=== PATIENT | female | born 1985 | race Caucasian/White ===

== ENCOUNTER 2020-10-02 09:39 | Outpatient (RCR) | payer OTHER, SELFPAY ==
[2020-09-25 10:14] LABS: Beta HCG Quantitative 63.72 mIU/ML
[2020-09-27 10:37] LABS: Beta HCG Quantitative 73.69 mIU/ML
[2020-09-30 12:25] LABS: Beta HCG Quantitative 74.68 mIU/ML
[2020-10-02 10:26] LABS: Beta HCG Quantitative 26.97 mIU/ML
== END 2020-12-24 23:59 | disposition home or self-care (01) ==
LOC: ANHLAB 09:39
PROVIDERS: Referring Provider Obstetrics & Gynecology; Visit Provider Obstetrics & Gynecology
DX: O20.0 Threatened abortion (principal); O36.0130 Maternal care for anti-D [Rh] antibodies, third trimester, not applicable or unspecified; Z3A.00 Weeks of gestation of pregnancy not specified
CPT/HCPCS: 36415; 84702; 85461

== ENCOUNTER 2021-08-10 05:51 | Inpatient (IN) | payer OTHER, SELFPAY ==
[2021-08-10] VITALS (108 sets, daily range): BP systolic 84–188; BP diastolic 53–166; PULSE 65–264; RESP 16; TEMP 36.6–38.6; O2SAT 97–100; BMI 29.0
--- NOTE | 2021-08-10 07:27 | LDADM ---
This patient, Catherine Trujillo, was admitted to Labor/Delivery/Recovery 105 on 08/10/21 at 05:51. Plans for labor, pain management and were discussed with patient. Patient/family oriented to hospital policies and general routines including ID bracelet, bed and alarms, visiting hours, pain management, procedures, bathroom and other care routines, personal items, smoking policy, room service/diet and guest tray routines, infant security routines, and visiting hours. Patient/Family are encouraged to report perceived risks to care and to ask questions if they do not understand what they are told or what they should do. See OBIX for further documentation.
[2021-08-10 08:10] LABS: Basophils Percent Auto 0.2 % (0.2-1.2); Eosinophils Percent Auto 0.2 % (0-4.4); Hematocrit 34.6 % (37.0-47.0); Hemoglobin 11.9 g/dL (12.0-15.0); Immature Granulocyte Absolute 0.12 K/mm3 (0.00-0.031); Immature Granulocyte Percent A 0.9 % (0-0.5); Lymphocytes Absolute Auto 1.62 K/mm3 (0.9-3.2); Lymphocytes Percent Auto 12.7 % (18.3-44.2); Mean Corpuscular HGB Conc 34.4 g/dl (32-36); Mean Corpuscular Hemoglobin 30.1 pg (26-34); Mean Corpuscular Volume 87.6 fl (80-100); Mean Platelet Volume 10.4 fl (7.4-10.4); Monocytes Absolute Auto 0.9 K/mm3 (0.1-0.6); Monocytes Percent Auto 7.3 % (2.6-8.5); Neutrophils Percent Auto 78.7 % (45.5-73.1); Platelet Count Result 239 k/mm3 (150-375); Red Blood Count 3.95 M/mm3 (4.2-5.4); Red Cell Distribution Width 12.6 % (11.5-14.5); White Blood Count 12.7 K/mm3 (4.5-10.0)
[2021-08-10] MEDS: LACTATED RINGERS 1,000 ML 125 ML IV CONT (08:22)
[2021-08-10] MEDS: OXYTOCIN 30 UNITS/NS 500 ML 30 UNITS/500 ML BAG IV CONT (08:23)
--- NOTE | 2021-08-10 08:34 | WPDOBADMIT ---
Obstetrics - Admit Note Admission Note: record reviewed. No pertinent additions to the history and/or any subsequent changes in the physical findings that are not consistent with the expected course of the were found. SROM, admitted to LD, anticipate vaginal delivery Additions to the history and/or subsequent changes in the physical findings follow. None.
--- NOTE | 2021-08-10 08:44 | WPDANESEPP ---
Anes - Eval Pre Procedure Procedure: labor epidural Date/Time: 08/10/21 08:44 Surgeon: behzad Preop Diagnosis: pain during labor Pre Op Diagnosis: Contractions Patient Data Age: 36 Gender: F Height: 1.64 m Weight: 78 kg Last Vital Signs Pulse 77 08/10/21 08:31 BP 115/77 08/10/21 08:31 Allergies Allergy/AdvReac Type Severity Reaction Status Date / Time No Known Allergies Allergy Verified 07/09/21 14:40 Home Medications Medication Instructions Recorded Confirmed Type famotidine [Pepcid AC] 10 mg PO DAILY 07/09/21 07/09/21 History fluticasone propionate [Flonase] 1 spray INTRANASAL DAILY 07/09/21 07/09/21 History prenat.vits,jamir,ili-idyt-nqyho 1 tablet PO DAILY 07/09/21 07/09/21 History [ #2] Laboratory Tests 08/10/21 08/10/21 08/10/21 07:13 07:13 07:13 WBC 12.7 K/mm3 H K/mm3 (4.5-10.0) RBC 3.95 M/mm3 L M/mm3 (4.2-5.4) Hgb 11.9 g/dL L g/dL (12.0-15.0) Hct 34.6 % L % (37.0-47.0) MCV 87.6 fl fl (80-100) MCH 30.1 pg pg (26-34) MCHC 34.4 g/dl g/dl (32-36) RDW 12.6 % % (11.5-14.5) Plt Count 239 k/mm3 k/mm3 (150-375) MPV 10.4 fl fl (7.4-10.4) Immature Gran % (Auto) 0.9 % H % (0-0.5) Neut % (Auto) 78.7 % H % (45.5-73.1) Lymph % (Auto) 12.7 % L % (18.3-44.2) [place] % (Auto) 7.3 % % (2.6-8.5) Eos % (Auto) 0.2 % % (0-4.4) Baso % (Auto) 0.2 % % (0.2-1.2) Lymph # (Auto) 1.62 K/mm3 K/mm3 (0.9-3.2) [place] # (Auto) 0.9 K/mm3 H K/mm3 (0.1-0.6) Eos # (Auto) 0.0 K/mm3 K/mm3 (0-0.3) Baso # (Auto) 0.0 K/mm3 K/mm3 (0.0-0.1) Abs Immat Gran (auto) 0.12 K/mm3 H K/mm3 (0.00-0.031) Absolute Neuts (auto) 10.0 K/mm3 H K/mm3 (1.3-6.7) Absolute Nucleated RBC 0.0 K/mm3 K/mm3 (0.0-0.012) Nucleated RBC % 0.0 % % (0.0-0.2) RPR Pending Blood Type O Positive Antibody Screen Negative Patient hx anesthesia problems: none Family hx anesthesia problems: none Results Review: All pre-operative results and documents have been reviewed as part of the pre-operative evaluation. [facility] Family History Family History (Updated 07/09/21 @ 14:46 by Yuriy Gasca RN) Mother Renal cell cancer Grandparent Congestive heart failure Dementia Father Pacemaker Sibling Hypertension Other Patient's mother is Social History Social History Smoking status: Never smoker Substance use: never Spiritual care concerns: No Exam Day of Procedure 08/10/21 08:44
[2021-08-10] MEDS: FAMOTIDINE 20 MG/2 ML VIAL IV PUSH (12:42)
[2021-08-10] MEDS: ONDANSETRON INJ 4 MG/2 ML VIAL IV PUSH (14:49)
[2021-08-10] MEDS: miSOPROStol 200 MCG TABLET 800 MCG (17:09)
--- NOTE | 2021-08-10 17:17 | P.PCNOB_ITS ---
OB - Delivery Note Procedure Delivery date: 08/10/21 Procedure: vaginal delivery Intrapartal events: None Delivery augmentation: pitocin Delivery monitor: external FHT and external uterine Route of delivery: Laceration Description: Perineal - 2nd Degree Delivery repair: vicryl Specimen: No Quantitative Blood Loss (ml): 505 Anesthesia type: Epidural Disposition: floor [place] Baby Date of : 08/10/21 Time of : 16:46 Weeks of gestation at delivery: 40 Infant gender: Female Weight (pounds): 7 Weight (ounces): 9 position: Left Occiput Anterior Placenta delivery description: Spontaneous and Manual Removal cord vessel description: 3 Vessels, Clamped/Cut, Around Extremity x1 and Delayed Cord Clamping score one minute: 8 score five minutes: 9 Narrative: Mother and baby skin to skin, fundus boggy, cytotec placed by RN, still boggy after massage and methergine IM given, then fundus firm and bleeding stable
[2021-08-10] MEDS: OXYTOCIN 30 UNITS/NS 500 ML 30 UNITS/500 ML BAG 125 UNITS IV CONT (17:20)
[2021-08-10] MEDS: IBUPROFEN 600 MG TABLET PO (19:36)
--- NOTE | 2021-08-10 20:35 | OBPPTRN ---
Patient transferred to post room #282 via wheelchair. Support person present. Oriented to unit, room, information board, rooming in, admission packet and security measures. Patient verbalizes understanding.
[2021-08-10] MEDS: GENTAMICIN 80MG/SOD CHL 50 ML 80 MG/50 ML BAG 100 MG IVPB (22:21)
[2021-08-10] MEDS: CLINDAMYCIN 900 MG/D5W 50 ML 900 MG/50 ML PIGGYBACK 50 MG IVPB (22:21)
[2021-08-11 04:30] VITALS: BP 92/52; PULSE 70; RESP 16; TEMP 36.8; O2SAT 97
[2021-08-11 05:28] LABS: Hematocrit 26.2 % (37.0-47.0); Hemoglobin 9.2 g/dL (12.0-15.0)
[2021-08-11] MEDS: POLYSACCHARIDE IRON COMPLEX 150 MG CAPSULE PO ×2 (07:26→17:16)
[2021-08-11] MEDS: IBUPROFEN 600 MG TABLET PO ×3 (07:26→20:59)
[2021-08-11] MEDS: DOCUSATE SODIUM 100 MG CAPSULE PO ×2 (07:26→17:16)
[2021-08-11 07:40] VITALS: BP 117/70; PULSE 78; RESP 16; TEMP 36.8; O2SAT 99
--- NOTE | 2021-08-11 07:43 | P.PNOB_ITS ---
OB - PN: Subj Subjective Date/time seen: 08/11/21 07:43 Patient comments: no complaints, pain well controlled and tolerating diet [place] baby status: doing well [place] feeding status: exclusively breast feeding OB - PN: Obj Data Labs CBC & Chem 7: 08/11/21 04:11 Labs: Laboratory Results - last 24 hr 08/10/21 08/10/21 08/11/21 07:13 07:13 04:11 WBC 12.7 H RBC 3.95 L Hgb 11.9 L 9.2 L Hct 34.6 L 26.2 L MCV 87.6 MCH 30.1 MCHC 34.4 RDW 12.6 Plt Count 239 MPV 10.4 Immature Gran % (Auto) 0.9 H Neut % (Auto) 78.7 H Lymph % (Auto) 12.7 L [place] % (Auto) 7.3 Eos % (Auto) 0.2 Baso % (Auto) 0.2 Lymph # (Auto) 1.62 [place] # (Auto) 0.9 H Eos # (Auto) 0.0 Baso # (Auto) 0.0 Abs Immat Gran (auto) 0.12 H Absolute Neuts (auto) 10.0 H Absolute Nucleated RBC 0.0 Nucleated RBC % 0.0 Blood Type O Positive Antibody Screen Negative OB - PN A/P Plan day: 1 Plan: routine care Comments: Routine post care. Doing well. Time Spent With Patient Time: Total time spent is greater than 50% in coordination of care (as documented) at patient's floor/unit and/or counseling patient: Time with patient: less than 15 minutes Exam Narrative: NAD abdomen soft, nontender, fundus firm below the umbilicus Extremities nontender, 1+ edema
[2021-08-11 08:00] VITALS: PULSE 78; RESP 16; O2SAT 99
--- NOTE | 2021-08-11 09:00 | PC.NURSE ---
Mother called out for assist with feeding. Mother reports infant is sleepy and makes eager attempts to latch with good bursts of nursing. Mother is using a nipple shield for all feedings. Mother has pain with all feedings. keeps tongue back and is not opening wide for deep latch, is able to flange both lips. Mother has bruising to both nipples, with redness to areola. Nipples are everted. Nipple care reviewed of lanolin after feedings, warm compresses as needed, gel pads provided and reviewed care and cleaning. Reviewed infant feeding cues, frequencies, duration of feedings, feeding elimination flow sheet, and signs of adequate intake. Demonstrated stimulation techniques to wake for feeding. Assisted with infant to breast. Reviewed positioning/alignment in cross cradle, holding breast in ?U? hold and guided asymmetrical latch on. Reviewed rational for each. was unable to latch correctly causing mother pain. Mother would grimace and quickly tighten up when infant began to nurse. Several attempts made with and without nipple shield no effective nursing noted and mother continues to have pain. Discussed the difference of effective vs ineffective feeding. Reviewed is latching with good burst of suckling, she is not feeding consistently with adequate milk transfer at this time and continues to need to be supplement after . Feeding options discussed, Feeding Plan is for mother to put infant to breast each feeding for up to 15 minutes, then pace feed supplement 20 mls and pump for 10-15 minutes. Parents are comfortable with supplementation and pumping. If infant begins to nurse effectively with long draws and frequent swallowing noted, may decrease supplementation and discontinue pumping. Suggested mother have LC irrigator gravity flow observe feeding before discontinuing supplementation. Discussed increasing supplementation as infant requires to satisfactions. Reviewed paced feeding and suggested to stop when is satisfied, as long as is having required output. With increased supplementation infant may not want to feed for 4 hours. Mother will continue to pump on feeding schedule and will increase session to 20 minutes if pumping every 4 hours. Instructed mother to call out for RN assistance if she is unable to latch for feeding or she has discomfort with nursing. Instructed feeding should be initiated three hours from start of last feeding or if feeding cues are noted before. Mother voiced understanding of information shared.
--- NOTE | 2021-08-11 09:30 | PC.NURSE ---
Breast pump provided due to ineffective feeding. Instructions given on breast pump care and usage, pumping schedule, nipple care, and collection and storage of breast milk. Encouraged [id number], breast massage and manual expression to stimulate supply. Assessed patient for correct flange size, placement and draw. Patient verbalizes and demonstrates understanding of instructions. Discussed colostrum vs milk supply and mother may not see more than a few drops the first few days, milk should transition in by day 3 and she may see more volume pumped per session.
[2021-08-11 11:41] LABS: Rapid Plasma Reagin Non-Reactive (NonReactive)
[2021-08-11 11:58] VITALS: BP 101/64; PULSE 73; RESP 16; TEMP 36.9; O2SAT 98
[2021-08-11 12:30] VITALS: PULSE 73; RESP 16; O2SAT 98
--- NOTE | 2021-08-11 12:45 | PC.NURSE ---
Consult with pt., to assist with feeding. Mother reports she continues to sore nipples and would prefer to pump and bottle feed at this time.
--- NOTE | 2021-08-11 14:31 | WPDANLDPN2 ---
Anes-Prog Note L&D Date/Time: 08/11/21 14:31 Comfortable throughout: labor and delivery Neuraxial method: epidural Epidural/Spinal procedure site: clean & non-tender Neuro status: Neuro function grossly intact. Cardiovascular status: normal Respiratory status: normal Airway patency: baseline Mental status: baseline Post-Op hydration status: normal Vital Signs: Last Vital Signs Temp 36.9 C 08/11/21 11:58 Pulse 73 08/11/21 11:58 Resp 16 08/11/21 11:58 BP 101/64 08/11/21 11:58 Pulse Ox 98 08/11/21 11:58 Pain score (VAS): 3 I/O: Intake & Output 08/10/21 08/11/21 08/11/21 23:59 07:59 15:59 Intake Total 600 Output Total 80 Balance 520 Post-procedural complaints: none Patient feedback: Patient satisfied with anesthetic care.
[2021-08-11] MEDS: ACETAMINOPHEN 325 MG TABLET 650 MG PO (17:16)
[2021-08-11 19:10] VITALS: BP 112/75; PULSE 83; RESP 16; TEMP 37; O2SAT 98
[2021-08-12] MEDS: ACETAMINOPHEN 325 MG TABLET 650 MG PO ×2 (01:00→14:52)
[2021-08-12] MEDS: IBUPROFEN 600 MG TABLET PO ×2 (03:25→10:12)
--- NOTE | 2021-08-12 07:46 | PM.OBPNVD ---
OB - PN: Subj Subjective Date/time seen: 08/12/21 07:46 Patient comments: no complaints baby status: doing well [place] feeding status: breast and bottle feeding OB - PN: Obj Data Labs CBC & Chem 7: 08/11/21 04:11 Labs: Laboratory Results - last 24 hr 08/10/21 07:13 RPR Non-reactive OB - PN A/P Plan day: 2 Plan: routine care and discharge home Time Spent With Patient Time: Total time spent is greater than 50% in coordination of care (as documented) at patient's floor/unit and/or counseling patient: Time with patient: less than 15 minutes Exam Narrative: NAD abdomen soft, nontender, fundus firm below the umbilicus Extremities nontender, 1+ edema
--- NOTE | 2021-08-12 07:51 | P.DS_ITS ---
DS: Admitting Diagnosis Discharge Date 08/12/21 Admitting Diagnosis term IUP, labor DS: Discharge Diagnosis Discharge Diagnosis (1) , delivered: Code(s): O80 - Encounter for full-term uncomplicated delivery Status: Acute OB - DS: Summary OB Procedures : Ultrasound OB Procedures Intrapartum: Spontaneous Vag Delivery OB Procedures: : None Time Spent with Patient Time attestation: Total time spent providing and/or coordinating discharge services: Exam Narrative: NAD abdomen soft, appropriately tender Ext non tender, 1+ edema DS: Data Data Completed and Pending Labs on day of discharge: Labs from last 24 hours 08/10/21 07:13 RPR Non-reactive Discharge Plan Discharge Attending physician on discharge: Adrienne Monreal Discharging Clinician: Adrienne Monreal Anticipated Discharge Date/Time: 08/12/21 11:00 Patient Disposition: Home, Self-Care Activity: may shower and pelvic rest Diet: regular Patient Instructions: Antibiotic Form Stand Alone Forms: General Discharge Information Follow-up/Referrals: Adrienne Monreal MD [Physician] - 4 Weeks Discharge Medications: Continued famotidine [Pepcid AC] 10 mg Tablet 10 mg PO DAILY RF: 0 fluticasone propionate [Flonase] 50 mcg/actuation [place],Suspension 1 spray INTRANASAL DAILY RF: 0 #2 Tablet 1 tablet PO DAILY RF: 0 Date of admission: 08/10/21 05:51 Primary Care Provider: PHYSICIAN,TEACHER [place] Admitting Provider: Adrienne Monreal Attending physician on admission: Adrienne Monreal Condition: Stable
[2021-08-12 08:05] VITALS: BP 113/70; PULSE 75; RESP 18; TEMP 36.6; O2SAT 98
[2021-08-12] MEDS: POLYSACCHARIDE IRON COMPLEX 150 MG CAPSULE PO (10:11)
[2021-08-12] MEDS: MULTIVIT/MIN/PREN/FOL AC/IRON TABLET 1 TAB PO (10:11)
[2021-08-12] MEDS: DOCUSATE SODIUM 100 MG CAPSULE PO (10:11)
--- NOTE | 2021-08-12 11:30 | PCDIET ---
Mother called out for assist with feeding. Mother reports infant has been more awake and making eager attempts to latch. Mother has attempted a few times without shield. Mother prefers to use the shield for each feeding and reports less pain with shield than without. Assisted with to breast. Reviewed positioning/alignment in cross cradle, holding breast in ?U? hold and guided asymmetrical latch on. Reviewed rational for each. was able to latch using nipple shield, once latched infant nursed eagerly for good bursts followed by pausing. Mother reported discomfort with infant nursing. Several attempts made to adjust latch with mother reporting no discomfort. Infant nursed consistently for 15 minutes, mother stimulating to wake, with responding with good bursts of rhythmical draws and occasional swallowing noted. Mother states she will continue to attempt each feeding for a few minutes then bottle feed EBM/formula and pump. Mother has a [employer] double electric pump for home use. Feeding Plan is for mother to put infant to breast each feeding for 5-15 minutes, then pace feed supplement 25 mls and pump for 10-15 minutes. Parents are comfortable with supplementation and pumping. If infant begins to nurse effectively with long draws and frequent swallowing noted, infant may decrease supplementation and discontinue pumping. Suggested mother have LC corporate accountant observe feeding before discontinuing supplementation. Discussed increasing supplementation as infant requires to satisfactions. Reviewed paced feeding and suggested to stop when is satisfied, as long as infant is having required output. With increased supplementation infant may not want to feed for 4 hours. Mother will continue to pump on feeding schedule and will increase session to 20 minutes if pumping every 4 hours. Reviewed once mother?s milk is established and is effectively feeding, infant may have increased intake with nursing. If infant is effective feeding with long draws and frequent swallowing noted, infant may be ready to decrease/discontinue supplementation. Advised not to discontinue supplement until ICP, Follow-Up RN or LC has a pre/post weighted evaluation of infant feeding. Discussed nipple shield weaning techniques Mother plan on discharge today. Mother is feeding as required and waking to feed if needed. Infantis currently meeting outcomes for weight, output, jaundice and feeding frequencies. Mother states she feels confident to continue current feeding plan at home. Reviewed transition to breast milk, signs of adequate intake, and engorgement/relief. Instructed to call ICP if intake/output less than required. Reviewed regular medications mother is taking. Information provided per Anna. Reviewed community resources on the [facility] website and in the Mom/Baby guide. Information on outpatient services provided. Mother has no further questions at this time.
[2021-08-13 09:06] VITALS: BP 114/79; PULSE 85; RESP 16; TEMP 37.1; O2SAT 100
== END 2021-08-12 16:17 | disposition home or self-care (01) | DRG 807 ==
LOC: ANHLDR 06:23 → ANHOB2 20:40
PROVIDERS: Advanced Practice Midwife; Admitting Provider Obstetrics & Gynecology; Visit Provider Obstetrics & Gynecology
DX: O70.1 Second degree perineal laceration during delivery (principal); Z37.0 Single live birth; O69.82X0 Labor and delivery complicated by other cord entanglement, without compression, not applicable or unspecified; Z3A.40 40 weeks gestation of pregnancy; O73.0 Retained placenta without hemorrhage
CPT/HCPCS: 36415; 85014; 85018; 85025; 86592; 86850; 86900; 86901; A9270; J1580; J2405; J2590; J2795; J7120

== ENCOUNTER 2021-10-17 11:15 | Outpatient (CLI) | payer BC, SELFPAY ==
--- NOTE | 2021-10-17 12:25 | PC.NURSE ---
1115 Breast feeding consulation; mother called with concerns about baby's latch for feeding as well as concerns about baby's weight, reporting a slight trend down at last visit on 10-14-2021. Mother is attempting breast feeding, and baby will latch at a few feedings a day, but mostly baby starts crying at any attempt to put her to breast, and fights latch. Mother is pumping 4-5 times a day and averages 3-4 ounces per pumping session. She reports having stored breast milk. Baby has been exclusively breast fed by either going to breast or taking breast milk in a bottle. Baby's weight today, pre-feeding, was 10 # 15.5 oz. 4977 gm Mother reports baby's weight on 10-14-2021 in office was 10 # 14 oz. Baby has only gained about 1.5 ounces in 5 days. Attempt to put infant to breast unsuccessful. She became very fussy at any attempt to latch. Mother had 2 ounces of pumped breast milk with her (some milk had spilled from the bottle in baby's diaper bag). Attempt to feed baby a small amount and retry latch to breast unsuccessful. Mother reports 18 feedings yesterday either at breast or breast milk bottles, but total intake calculated in 16.8 ounces in 24 hours, plus some breast feedings, mother not able to recall how effective feedings were. Mother is attempting breast feedings, but moves to botle feedings if baby will not latch. She verbalizes being very comfortable with bottle supplements of breast milk and will continue pumping. Plan: continue attempts at breast as baby will; supplement bottle feedings at each feeding, working toward at least 10 feedings a day, and bottle feedings increasing to 3 ounces a day, with baby's total intake of at least 30 ounces a day. Mother will continue pumping, observing for volumes that will allow baby to have at least 30 ounces a day, increasing number of pump sessions a day if necessary. Suggested weight check again in a week. Mother reports that baby has been referred to OT for torticollis for evaluation and treatment. Mother has read these notes and agrees, and voices understanding. She received a copy of these notes and a signed note is in her chart.
--- NOTE | 2021-10-21 12:40 | PC.NURSE ---
F/U phone call with Catherine today. Mother reports things are improving some. She reports feeling that baby, Lee Ann, is latching to the breast easier and for longer lengths of time; she reports that still most feedings are breast milk by bottle feedings; and states that baby is satisfied after feedings. She is continuing to pump and gets 1-3 ounces per pumping session, depending on if baby latched to the breast to feed. Mother states she weighed Lee Ann on her kitchen scale, and she gained . I did encourage a weight check again this week. Mother reports has OT appointment tomorrow and does not want to do too much at once. Mother states she is OK with her current plan, that she is making it work. Nurse encouraged her to call back as desired and to continue close f/u with Dr. Aggarwal.
== END 2021-10-17 11:16 | disposition home or self-care (01) ==
LOC: ANHOBOP 11:18
PROVIDERS: Visit Provider Pediatrics
DX: O90.89 Other complications of the puerperium, not elsewhere classified (principal)
CPT/HCPCS: 99202; 99203; G0463

== ENCOUNTER 2023-10-17 14:29 | Emergency (ER) | payer BC, SELFPAY ==
--- NOTE | ~2023-10-17 | US_ITS ---
CORRECTED REPORT order description changed to US OB transvaginal [facility] 10/18/23 This report was recreated on 10/18/23. Original report was SCIENTIFIC EXAMINATION: US OB transvaginal DATE: 10/17/2023 16:14 INDICATION: Vaginal bleeding during first trimester TECHNIQUE: Real-time pelvic transabdominal and transvaginal ultrasound was performed. COMPARISON: None. FINDINGS: The uterus measures 7.8 x 3.9 x 4.4 cm. The endometrial thickness measures 11 mm. No intrauterine gestational sac is identified. The right ovary measures 2.7 x 1.5 x 1.3 cm. The left ovary measures 3.0 x 2.1 x 2.8 cm. There is a 1.4 x 1.4 cm complex cystic lesion of the left ovary. There is normal vascular flow in the ovaries. There is no free fluid in the pelvis. IMPRESSION: 1. of unknown location. Although no intrauterine gestational sac is seen, this may be due to early gestation. If the patient is clinically stable, recommend followup with serial beta-hCG and ultrasound. 2. Probable hemorrhagic cyst of the left ovary with no correlate identified for vaginal bleeding. Reviewed, dictated and finalized at location F. SCIENTIFIC MTDD IMPRESSION: 1. of unknown location. Although no intrauterine gestational sac is s een, this may be due to early gestation. If the patient is clinically stable, r ecommend followup with serial beta-hCG and ultrasound. 2. Probable hemorrhagic cyst of the left ovary with no correlate identified for vaginal bleeding.
[2023-10-17 14:30] VITALS: BP 119/89; PULSE 72; RESP 20; TEMP 36.8; O2SAT 100
[2023-10-17 14:58] LABS: Basophils Percent Auto 0.2 % (0.2-1.2); Eosinophils Percent Auto 0.1 % (0-4.4); Hematocrit 39.6 % (37.0-47.0); Hemoglobin 13.1 g/dL (12.0-15.0); Immature Granulocyte Absolute 0.08 K/mm3 (0.00-0.031); Immature Granulocyte Percent A 0.6 % (0-0.5); Lymphocytes Absolute Auto 0.96 K/mm3 (0.9-3.2); Lymphocytes Percent Auto 6.7 % (18.3-44.2); Mean Corpuscular HGB Conc 33.1 g/dl (32-36); Mean Corpuscular Hemoglobin 28.5 pg (26-34); Mean Corpuscular Volume 86.3 fl (80-100); Mean Platelet Volume 8.4 fl (7.4-10.4); Monocytes Absolute Auto 0.4 K/mm3 (0.1-0.6); Monocytes Percent Auto 2.5 % (2.6-8.5); Neutrophils Absolute Auto 12.8 K/mm3 (1.3-6.7); Neutrophils Percent Auto 89.9 % (45.5-73.1); Platelet Count Result 307 k/mm3 (150-375); Red Blood Count 4.59 M/mm3 (4.2-5.4); Red Cell Distribution Width 12.2 % (11.5-14.5); White Blood Count 14.2 K/mm3 (4.5-10.0)
--- NOTE | 2023-10-17 15:34 | ED.ABDPAIN ---
HPI - Abdominal Pain General Chief Complaint: Abdominal Pain Stated Complaint: 5 weeks -abdominal pain and bleeding Time Seen by Provider: 10/17/23 15:34 Source: patient and family Mode of arrival: ambulatory Limitations: no limitations History of Present Illness HPI narrative: PATIENT IS 38 YEARS OLD WHITE FEMALE CAME TO THE EMERGENCY ROOM BY PRIVATE CAR WITH CRAMPS, SHOOTING PAIN AT THE LEFT LOWER QUADRANT TO LEFT GROIN AND LEFT UPPER THIGH AND LEFT LOWER BACK STARTED THIS MORNING WITH VAGINAL SPOTTING. NOT IMPROVING ON TYLENOL. PATIENT IS 3 PARA 1 1. PATIENT DOES NOT SMOKE OR DRINK OR USE DRUGS, DOES NOT TAKE MEDICINE AT HOME. Related Data Allergies Allergy/AdvReac Type Severity Reaction Status Date / Time No Known Allergies Allergy Unverified 10/17/23 14:29 Review of Systems Review of Systems: All systems reviewed & are unremarkable except as noted in HPI and below Exam Narrative: GENERAL APPEARANCE: WELL-DEVELOPED, WELL-NOURISHED SKIN: NORMAL COLOR HEAD: NORMOCEPHALIC, NONTRAUMATIC EYES: CLEAR CONJUNCTIVA ENT: OROPHARYNX NORMAL, EARS NORMAL, NOSE NORMAL NECK: SUPPLE, NONTENDER CHEST AND RESPIRATORY: AIRWAY PATENT, NO RESPIRATORY DISTRESS, NO ACCESSORY MUSCLE USE HEART: REGULAR RATE/RHYTHM ABDOMEN: SOFT, SLIGHT TENDERNESS LEFT LOWER QUADRANT, NO ORGANOMEGALY, QUIET BOWEL SOUNDS VASCULAR: NORMAL PERIPHERAL PULSES, NORMAL CAPILLARY REFILL. MUSCULOSKELETAL: NORMAL RANGE OF MOTION, NONTENDER BACK NEUROLOGIC: ALERT AND ORIENTED ?3, LEVERS LACE MACHINE OPERATOR IS NORMAL TESTED, NO GROSS MOTOR DEFICIT : Speculum Exam - Vagina: normal appearance of the vagina and vaginal bleeding (TRACE OF BLOOD AROUND THE CERVIX) Course Consultations Consultation #1: DR MANNING CALL OFFICE TOMORROW FOR APPOINTMENT Date: 10/17/23 Time: 18:31 Vital Signs Vital signs: Vital Signs Temperature 36.8 C 10/17/23 14:30 Pulse Rate 72 10/17/23 14:30 Respiratory Rate 20 10/17/23 14:30 Blood Pressure 119/89 10/17/23 14:30 Pulse Oximetry 100 10/17/23 14:30 Oxygen Delivery Room Air 10/17/23 14:30 Temperature 36.8 C 10/17/23 14:30 Pulse Rate 72 10/17/23 14:30 Respiratory Rate 20 10/17/23 14:30 Blood Pressure 119/89 10/17/23 14:30 Pulse Oximetry 100 10/17/23 14:30 Oxygen Delivery Room Air 10/17/23 14:30 MDM - Abdominal Pain MDM Narrative Medical decision making narrative: PATIENT IS 5 WEEKS , PRESENTS WITH VAGINAL SPOTTING LEFT LOWER QUADRANT PAIN, VITAL SIGNS ARE STABLE, PHYSICAL EXAMINATION SHOWED NO SIGNIFICANT ABNORMALITIES EXCEPT SLIGHT SCANT BLOOD AROUND THE CERVIX, CERVIX IS CLOSE, DIFFERENTIAL DIAGNOSIS INCLUDED THREATENED , ECTOPIC , URINARY TRACT INFECTION, OR RUPTURED OVARIAN CYST WORKUP TODAY SHOWED ELEVATED WBC HIGH LIKELY SECONDARY TO , PELVIC ULTRASOUND WAS NOT DIAGNOSTIC AT THIS TIME PATIENT IS [address] MANNING WAS NOTIFIED, REQUESTED TO SEE PATIENT WITHIN THE NEXT COUPLE DAYS FOR FURTHER EVALUATION.. Differential Diagnosis Differential diagnosis: Likely other ( ABOVE) Lab Data 10/17/23 14:52 Labs: Lab Results 10/17/23 10/17/23 Range/Units 14:52 17:52 WBC 14.2 H (4.5-10.0) K/mm3 RBC 4.59 (4.2-5.4) M/mm3 Hgb 13.1 (12.0-15.0) g/dL Hct 39.6 (37.0-47.0) % MCV 86.3 (80-100) fl MCH 28.5 (26-34) pg MCHC 33.1 (32-36) g/dl RDW 12.2 (11.5-14.5) % Plt Count 307 (150-375) k/mm3 MPV 8.4 (7.4-10.4) fl Immature Gran % (Auto) 0.6 H (0-0.5) % Neut % (Auto) 89.9 H (45.5-73.1) % Lymph % (Auto) 6.7 L (18.3-44.2) % [place] % (Auto) 2.5 L (2.6-8.5) % Eos % (Auto) 0.1 (0-4.4) % Bas
[2023-10-17] MEDS: SODIUM CHLORIDE 0.9% IV 1,000 ML 999 ML IV CONT (17:50)
[2023-10-17] MEDS: MORPHINE SULFATE (*CRX) 4 MG/ML INJ IV PUSH ×2 (17:50→18:53)
[2023-10-17] MEDS: ONDANSETRON INJ 4 MG/2 ML VIAL IV PUSH ×2 (17:50→18:53)
[2023-10-17 18:34] LABS: Appearance Urine Cloudy (Clear); Bacteria Urine None Seen /hpf; Bilirubin Urine Negative (Negative); Blood Urine 3+ (Negative); Color Urine Yellow (Yellow); Glucose Urine UA 1+ mg/dL (Negative); Ketones Urine Trace mg/dL (Negative); Leukocyte Esterase Ur Trace LEU/UL (Negative); Need Manual Microscopic Reviewed; Nitrate Urine Negative (Negative); Protein Urine Negative (Negative); RBC Urine 21-50 /hpf (0-2); Specific Grav Ur 1.025 (1.001-1.035); Squamous Epithelial Cell Urine Occasional /hpf (Few); Urobilinogen Urine 0.2 mg/dL (<2.0); WBC Urine 0-5 /hpf; pH Urine 8.5 (5.0-9.0)
[2023-10-17 18:35] LABS: Add Urine Microscopic? YES
[2023-10-17 19:02] VITALS: BP 125/84; PULSE 72; RESP 19; O2SAT 100
== END 2023-10-17 19:12 | disposition home or self-care (01) ==
PROVIDERS: Physician Assistant; Emergency Provider Emergency Medicine; PCP Internal Medicine
DX: O20.0 Threatened abortion (principal); O34.81 Maternal care for other abnormalities of pelvic organs, first trimester; N83.202 Unspecified ovarian cyst, left side; Z3A.01 Less than 8 weeks gestation of pregnancy
CPT/HCPCS: 36415; 76801; 76817; 81001; 84702; 85025; 85461; 86850; 86900; 86901; 96361; 96374; 96375; 96376; 99284; J2270; J2405; J7030

== ENCOUNTER 2024-06-28 02:19 | Day surgery (SDC) | payer OTHER, SELFPAY ==
[2024-06-27 11:42] VITALS: BMI 27.1
--- NOTE | 2024-06-27 11:43 | PC.NURSE ---
Report to the Outpatient Waiting Room, entrance under the green pavilion located off [facility], at time _1215_ on date _[id number]_. Planned Procedure Time: _215pm_.? Time changes happen often and if your time is changed the preop area will call you the afternoon before. - You and your visitor will be asked to self-screen and do not enter if you have any COVID symptoms. Please call surgeon if you need to reschedule. - A mask is optional within the hospital at this time. Patients may have clear liquids (water, carbonated beverages, clear teas, apple juice) until 3 hours prior to surgery with a maximum of 20 ounces. - No food from midnight until time of surgery and no smoking Take only the following medications with a SIP of water on the morning of surgery: ____None DO NOT STOP ANY OF YOUR OTHER PRESCRIPTION MEDICATIONS PRIOR TO SURGERY EXCEPT THE FOLLOWING Medications to discontinue per physician ____Prenatal Date to take last dose__Stop now. Please no make-up, nail sinhala, hairspray, perfume, deodorant, or body powder the day of surgery.? No jewelry (including any body piercings) or valuables the day of surgery, leave them at home.? Please take a shower or bath the night before, or the morning of, surgery with an antibacterial soap.? Wear comfortable, loose fitting clothing.? - Jewelry must be removed prior to entering the operating room.? Rings and piercings that are not removed may be cut off. - The hospital will not accept responsibility for valuables.? - Please leave all valuables, including medications, at home the day of surgery. If you are going home after surgery, a licensed truck driver salesperson must drive you home.? - NO public transportation without another adult if you receive anesthesia. - We recommend that an adult stay with you for 24 hours following discharge. - We also recommend that you do not drive, make important decision, drink alcoholic beverages, or take any drugs that were not prescribed by your health care provider for at least 24 hours after your discharge time. Follow any additional instructions given to you from your surgeon. Telephone instructions given to ___Catherine___and asked if any additional questions and then verbalized understanding. Patient advised to call surgeon office or pre surgery nurse liaison [phone] if any additional questions.
[2024-06-28] MEDS: ACETAMINOPHEN 500 MG TABLET 1000 MG PO (12:55)
[2024-06-28 13:20] VITALS: BP 110/74; PULSE 80; RESP 16; TEMP 37.2; O2SAT 100
[2024-06-28 13:27] VITALS: BMI 26.8
[2024-06-28] MEDS: LACTATED RINGERS 1,000 ML 30 ML IV CONT ×2 (13:30→14:58)
--- NOTE | 2024-06-28 13:31 | PM.IMHP ---
H&P: HPI History of Present Illness Date/Time: 06/28/24 13:31 Chief Complaint: Miscarriage Narrative: 38 y/o at 10w6d by LMP 04/15/24. FHR not detected yesterday at New OB visit. Ultrasound showed IUP with CRL only consistent with 7 weeks, with no FHR and no embryonic movement. She has no bleeding. Review of Systems Review of Systems: All systems reviewed & are unremarkable except as noted in HPI and below PMFSH Family History Family History Mother Renal cell cancer Grandparent Congestive heart failure Dementia Father Pacemaker Sibling Hypertension Other Patient's mother is Social History Social History Smoking status: Never smoker Substance use: never Living arrangements: with family Spiritual care concerns: No Meds Home Medications and Allergies Home Medications Medication Instructions Recorded Confirmed Type famotidine 10 mg tablet (Pepcid AC) 10 mg PO DAILY 07/09/21 07/09/21 History fluticasone propionate 50 1 spray intranasal DAILY 07/09/21 07/09/21 History mcg/actuation nasal spray,suspension prenat.vits,jamir,xxu-aiow-zjgmn 1 tablet PO DAILY 07/09/21 07/09/21 History bhulkexl-stq-Yg-FA 1 mg 1 tablet PO DAILY 06/27/24 06/27/24 History tablet Allergies Allergy/AdvReac Type Severity Reaction Status Date / Time No Known Allergies Allergy Verified 06/28/24 13:27 Vital Signs Vital Signs - 24 hr 06/28/24 13:20 Temperature 37.2 C Pulse Rate 80 Respiratory Rate 16 Blood Pressure 110/74 Pulse Oximetry 100 Oxygen Delivery Room Air Exam Const: Orientation/consciousness: patient oriented x3 Other: Well-developed, well-nourished female in no acute distress. Neck: Thyroid: thyroid normal Lymphatic: no lymphadenopathy noted (in neck, axilla or inguinal nodes) Resp: Effort & Inspection: normal respiratory effort Auscultation: clear to auscultation bilaterally Cardio: Rate: regular rate Rhythm: regular rhythm Heart sounds: S1 normal heart sound present and S2 normal heart sound present GI: Other: ABD: Soft, nontender, nondistended. No guarding or rebound tenderness. No hepatosplenomegaly. : General: Yes no CVA tenderness Other: External genitalia: normal female hair distribution, without lesion. Urethral meatus: no lesion, non prolapsed. Bladder: no mass, nontender Vagina: well-estrogenized, without lesion or discharge. No cystocele or rectocele. Cervix: no lesion or discharge. Uterus: small, anteverted, freely mobile, nontender Adnexa: no mass or tenderness. Anus/perineum: no lesions, nontender Back/Spine/Pelvis: Back: no CVA tenderness Skin: General skin exam: normal color and no rashes or lesions noted Neuro: General: patient oriented x3 Extrem: Other: Extremities: nontender with no edema Psych: Mental Status: mental status grossly normal Affect: normal affect Assessment and Plan Assessment and plan (1) Missed : Code(s): O02.1 - Missed Status: Acute Assessment and Plan: A: Missed SAB. P: Offered expectant management vs. surgical management. She prefers the latter. Specifically, I offered dilation and suction curettage. She understands risks of surgery to include risks of anesthesia, risks of pain, infection, bleeding, blood products, thromboembolic phenomena and damage to adjacent structures such as bowel, bladder, ureters, blood vessels and nerves. She understands all these risks and elects to proceed with surgery.
--- NOTE | 2024-06-28 13:33 | WPDHPUPDATE1 ---
History and Physical Update Update Date/Time: 06/28/24 13:33 History and Physical has been reviewed, including an updated exam of the patient. There are NO changes in the patient's condition. Risks, benefits, and alternatives have been discussed and questions answered. Patient agrees to proceed with procedure.
--- NOTE | 2024-06-28 14:21 | P.PNAN_ITS ---
Anes - Initial Pre Proc Eval Procedure: Operation Date: 06/28/24 14:15 Proposed Procedures p Suction Dilation and Curettage - Jose Zavala MD Date/Time: 06/28/24 14:21 Surgeon: Jose Zavala MD Pre Op Diagnosis: Missed AB Patient Data Age: 38 Gender: F Height: 1.63 m Weight: 70.9 kg Last Vital Signs Temp 37.2 C 06/28/24 13:20 Pulse 80 06/28/24 13:20 Resp 16 06/28/24 13:20 BP 110/74 06/28/24 13:20 Pulse Ox 100 06/28/24 13:20 O2 Del Method Room Air 06/28/24 13:20 Allergies Allergy/AdvReac Type Severity Reaction Status Date / Time No Known Allergies Allergy Verified 06/28/24 13:27 Home Medications Medication Instructions Recorded Confirmed Type famotidine 10 mg tablet (Pepcid AC) 10 mg PO DAILY 07/09/21 07/09/21 History fluticasone propionate 50 1 spray intranasal DAILY 07/09/21 07/09/21 History mcg/actuation nasal spray,suspension prenat.vits,jamir,lop-klla-frcin 1 tablet PO DAILY 07/09/21 07/09/21 History xsebzsal-wug-Fq-FA 1 mg 1 tablet PO DAILY 06/27/24 06/27/24 History tablet hydrocodone 5 mg-acetaminophen 325 1 tablet PO Q6H PRN pain #10 tabs 06/28/24 Rx mg tablet Laboratory Tests 06/28/24 12:42 Blood Type O Positive Antibody Screen Negative Doses of RhIg Required 0 Patient hx anesthesia problems: none Family hx anesthesia problems: none Results Review: All pre-operative results and documents have been reviewed as part of the pre- operative evaluation. [facility] Family History Family History Mother Renal cell cancer Grandparent Congestive heart failure Dementia Father Pacemaker Sibling Hypertension Other Patient's mother is Social History Social History Smoking status: Never smoker Substance use: never Living arrangements: with family Spiritual care concerns: No Anes - Eval Final PreProcedure Day of Procedure 06/28/24 14:21 Patient weight: normal Heart: regular rate and rhythm Lungs: clear to auscultation Airway: Mallampati scale class II Neurological: alert and oriented Last oral intake: >/= 8 hours ASA classification: II Emergent: no Anesthetic plan: proceed Anesthesia type and monitoring: general GIVS and standard monitoring Results Review: All pre-operative results and documents have been reviewed as part of the pre- operative evaluation. Informed Consent: The patient's anesthetic plan and its attendant risks and benefits were discussed with the patient/family/POA. Questions were solicited and answers provided to the satisfaction of the patient/family/POA.
[2024-06-28] MEDS: LIDOCAINE HCL 1% LOCAL INJ 20 ML VIAL 10 ML INFILTRATE (14:49)
[2024-06-28 14:58] VITALS: BP 97/46; PULSE 55; RESP 14; O2SAT 97
--- NOTE | 2024-06-28 14:58 | W.PM.PROC2 ---
Procedure Note - Detailed Date of Procedure 06/28/24 Pre-op Diagnosis Missed spontaneous Post-op Diagnosis Same Procedure Performed Dilation and suction curettage Surgeon Jose Zavala MD Anesthesia MAC and Local (1% lidocaine) Findings Products of conception Description of Procedure The patient was taken to the operating room where she was prepared and draped in the usual sterile fashion in the dorsal lithotomy position. The bladder was drained with a red rubber catheter. A sterile speculum was placed into the vagina. The anterior lip of the cervix was grasped with a single-tooth tenaculum. Ten mL of 1% lidocaine was administered in a paracervical block. The cervix was gently dilated using Hegar dilators until an 8 mm dilator could be passed. The 8 mm curved tip suction curette was advanced. Suction curettage was performed and products of conception were aspirated. Sharp curettage was then performed until a good uterine cry was noted. A final pass with the suction curette was made. The tenaculum was removed. Hemostasis was excellent. Sponge, lap, needle and instrument counts were correct. The patient was taken to the recovery room in stable condition. I was present and scrubbed for the entire procedure. Implants None Estimated Blood Loss 50 Drains No Packing No Pathology Yes (Endometrial curettings) Complications None Condition Stable Disposition PACU
[2024-06-28 15:25] VITALS: BP 99/59; PULSE 57; RESP 14; O2SAT 100
[2024-06-28 15:45] VITALS: BP 116/74; PULSE 58; RESP 14
== END 2024-06-28 16:01 | disposition home or self-care (01) ==
PROVIDERS: PCP Internal Medicine; Visit Provider Obstetrics & Gynecology
PROC: (CPT 59820; principal; 2024-06-28 14:15)
DX: O02.1 Missed abortion (principal); G89.18 Other acute postprocedural pain; Z79.891 Long term (current) use of opiate analgesic; Z80.51 Family history of malignant neoplasm of kidney; Z82.49 Family history of ischemic heart disease and other diseases of the circulatory system
CPT/HCPCS: 59820; 36415; 85461; 86850; 86900; 86901; 88264; 88305; A9270; J1100; J1885; J2250; J2405; J2704; J3010; J7120

== ENCOUNTER 2025-04-16 10:01 | Outpatient (CLI) | payer OTHER, SELFPAY ==
--- OUTSIDE RECORDS SUMMARY | 2025-04-16 10:12 | XMS_ITS | Data Portability ---
Author Organization [facility] [place] Address [address] [place] [address] Assessment Encounter Date Assessment Date Assessment LastModified by Organization Details LastModified Time 07/30/2021 07/30/2021 Patient is _38__weeks . Discussed plan. Not available 07/30/2021 17:18:17 09/09/2021 09/09/2021 Normal exam- pelvic rest 4 more weeks due to healing perineum May resume normal activities contraceptive plan-- declines FU for WWE Feb [email or web address] Not available 09/09/2021 12:28:04 11/28/2021 11/28/2021 healthy female exam patient declines std testing pap due 2023 mammogram at 41 contraception - discussed options while , will call if desires. FU 1 year or prn [email or web address] Not available 12/01/2021 12:33:07 Plan of Treatment Reminders Order Date Submit Date Provider Last Modified By Organization Details Last Modified Time Details Appointments None record ed. Lab None record ed. Referral None record ed. Procedures None record ed. Surgeries None record ed. Imaging None record ed. Medication Orders None record ed. Patient TargetsNo targets recorded. Patient InstructionsNo instructions recorded. Reason for Referral None Reported. Results Created Date Observation Date Name Description Value Unit Range Abnormal Flag Note LastModifiedBy Organization Detail LastModifiedTime 07/09/20 21 07/09/2021 CULTU RE: GROUP B STREP SCREE N, REFLE X SUSCE PTIBI LITY result report SEE RESULT S BELOW Test: Cultu re: Group B Strep , Refle x Susce ptibi lity ([facility]/ [facility] ) Speci men Sourc e: Vagin a/Rec roro Speci men Type: Vagin al/Re ctal Speci men Date: 2020 4:24 PM Resul t Date: 2020 2:23 PM Resul t Statu s: Final resul t Abnor mal: No Resul ting Lab: [facility] [address] [facility] [facility] [address] Tel: CULTU RE ----- ----- ----- --- No Group B strep isola jennifer at 2 days (bri ctive broth enhan cemen t) Not Available [facility] (Lab) [address] [facility], [place], [address], 07/12/2021 15:25:37 Result Notes None recorded. Problems Name Problem SNOMED Code Status Onset Date Resolution Date Notes Provider Name and Address Organization Details Recorded Time 91678007 Completed 202008/28/2021 Ghazala parks, [facility] 10:15:36 Advanced maternal age 978357633 Completed NL NIPT Ghazala trimble [facility], [facility] 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 17:52:24 Problem Notes None recorded. Procedures Surgical History Date Name Laterality Status Provider Name and Address Organization Details Recorded Time 1 Date of Last Pap Smear completed Rachel Leon [facility] 12/31/2020 12:34:24 3 extraction of wisdom tooth completed Cinthya Vargas [facility] 10/07/2020 16:01:47 Imaging Results None recorded. Procedure Notes None recorded. Medical Equipment None Reported. Allergies No known drug allergies Medications Name Sig Start Date Stop Date Status Note LastModified by Organization Details LastModified Time azithromyci n 250 mg tablet 09/09 completed Not Available Not Available Not Available 09/09 completed Not Available Not Available Not Available Flonase Allergy Relief 50 mcg/actuati on nasal spray,suspe nsion Gilbert 1 spray every day by intranasa l route. active Not Available Not Available No t Available ID NOW COVID-19 Test Kit DIRECTED 01/28 completed Not Available Not Available Not Available COVID-19 test specimen collection TEST DIRECTED 01/28 completed Not Available Not Available Not Available Vitals Date Recorded Body height Body mass index (BMI) Body weight Systolic And Diastolic Provider Name and Address Organization Details Last Updated DateTime 11/28/2021 162.56 cm 25.9 kg/m2 67540.45 g 118/76 mm[Hg] [facility] 11/28/2021 11:35:41 Date Recorded Body height Body mass index (BMI) Body weight Systolic And Diastolic Provider Name and Address Organization Details Last Updated DateTime 07/24/2021 162.56 cm 29.4 kg/m2 94796.295 27 g 130/80 mm[Hg] Shraddha Garcia [facility] 07/24/2021 16:32:55 Date Recorded Body height Body mass index (BMI) Body weight Systolic And Diastolic Provider Name and Address Organization Details Last Updated DateTime 07/30/2021 162.56 cm 28.8 kg/m2 25497.518 16 g 118/79 mm[Hg] Rachel Leon [facility] 07/30/2021 17:04:23 Date Recorded Body height Body mass index (BMI) Body weight Systolic And Diastolic Provider Name and Address Organization Details Last Updated DateTime 08/08/2021 162.56 cm 29.4 kg/m2 65306.295 27 g 135/85 mm[Hg] [facility] 08/08/2021 10:01:54 Date Recorded Body height Body mass index (BMI) Body weight Systolic And Diastolic Systolic And Diastolic Provider Name and Address Organization Details Last Updated DateTime 09/09/2021 162.56 cm 26.8 kg/m2 27905.41 g 149/92 mm[Hg] 132/90 mm[Hg] Cinthya Vargas [facility] 12:00:50 Social History Question Answer Notes LastModified by Organizat ion Details LastModified Time Tobacco Smoking Status Never Smoker Fabio Lupe parks, [facility] 09/09/2021 11:57:08 Do You Have An Advance Directive? No [email or web address] Information n ot available 02/26/2021 If You Are , What Was Your Level Of Alcohol Consumption Prior To ? Occasional [email or web address] Information not available 09/09/2021 How Many Years Have You Consumed Alcohol? 13 Information not available 11/04/2020 Are You Blind Or Do You Have Difficulty Seeing? No [email or web address] Information n ot available 12/31/2020 What Is Your Level Of Caffeine Consumption? None [email or web address] Information not available 07/24/2021 How Much Tobacco Do You Chew? None [email or web address] Information not available 02/26/2021 In The 14 Days Before Symptom Onset, Have You Had Close Contact With A Laboratory-confirm ed COVID-19 While That Case Was Ill? Yes [email or web address] Information n ot available 02/26/2021 In The 14 Days Before Symptom Onset, Have You Had Close Contact With A Person Who Is Under Investigation For COVID-19 While That Person Was Ill? No Information not available 12/31/2020 Have You Been To An Area Known To Be High Risk For COVID-19? No [email or web address] Information not available 12/31/2020 Are You Deaf Or Do You Have Serious Difficulty Hearing? No [email or web address] Information not available 12/31/2020 What Type Of Diet Are You Following? REGULAR Information n ot available 02/26/2021 What Is The Highest Grade Or Level Of School You Have Completed Or The Highest Degree You Have Received? [id number] [email or web address] Information not available 02/26/2021 Are There Any Guns Present In Your Home? No Information not available 02/26/2021 Have You Ever Been Counseled For Unhealthy Alcohol Use? No Information not available 09/09/2021 Do You Use Protection During Sex? No Information not available 02/26/2021 Do You Use Your Seat Belt Or Car Seat Routinely? Yes [email or web address] Information not available 12/31/2020 Do You Have Smoke And Carbon Monoxide Detectors In Your Home? Yes [email or web address] Information not available 12/31/2020 How Much Tobacco Do You Smoke? No [email or web address] Information not available 02/26/2021 Do You Use Sunscreen Routinely? Yes [email or web address] Information not available 12/31/2020 Has Tobacco Cessation Counseling Been Provided? No [email or web address] Information not available 09/09/2021 Have You Used IV Drugs? No [email or web address] Information not available 02/26/2021 How Many Days In The Past Year Have You Consumed 4 Or More Drinks? 10 [email or web address] Information not available 09/09/2021 Sex: Unknown Functional Status Question Answer Note LastModified by Organizat ion Details LastModified Time Do you use any illicit or recreational drugs? No Information not available 11/04/2020 Do you or have you ever used any other forms of tobacco or nicotine? No [email or web address] Information not available 09/09/2021 What is your level of alcohol consumption? Occasional Information not available 11/04/2020 Are you able to walk? 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 Moderate Information not available 11/04/2020 Mental Status Question Answer Note LastModified by Organization D etails LastModified Time Do you feel stressed (tense, restless, nervous, or anxious, or unable to sleep at night)? [id number] [email or web address] Information not available 07/24/2021 Family History Relationship Description Onset Age of this Age Resolved Age Notes LastModified by Organization Details LastModified Time Father Hypertensive disorder [email or web address] Not available 12/31 12:33:35 Sister Hypertensive disorder [email or web address] Not available 12/31 12:33:35 Mother Carcinoma in situ of kidney 46 [email or web address] Not available 2021 11:29:14 Unspecified Relation Malignant tumor of breast matern al cousin [email or web address] Not available 02/12/2021 16:10:14 Medical History Condition Response Allergies (Food, seasonal, environmental ) Y Other N Breast Cancer N Drug/Latex Allergies/Reactions N Blood Transfusion N Dermatologic Disorders N Lung Disease N Defects or Inherited Disease N Breast Problem N Gestational Diabetes N Hematologic disorders N Anesthesia Complications N History of STI N Deep Vein Thrombosis N Polycystic ovary syndrome N Anxiety Disorder N Autoimmune disease N Arthritis N Infertility N Polyps N Acid Reflux (GERD) N History of abnormal pap N Cancer N Stroke N Varicosities N Neurologic/Epilepsy N Endometriosis N High Cholesterol N Headaches N Fibromyalgia N Kidney Disease N Heart Problems N Kidney or Bladder Problems N Thyroid Problems N GI Problems N Eating Disorder N Anemia N Art (IVF or FET) N Psychiatric Illness N Ovarian Cancer N Diabetes N Pulmonary (TB, Asthma) N Hepatitis/Liver Disease N Eczema N Urinary Tract Infection N Abuse/Domestic Violence N Asthma N Trauma/Violence N Depression/ depression N Heart Disease N Pre-Eclampsia N Hypertension N Osteoporosis N Thrombophilias N Gynecological History Statement/Question Response Date of LMP 10/31/2020 On BCP's at Conception? N N Was last menstrual period normal Y HPV Vaccine N Duration of Flow (days) 4 Current Control Method None Frequency of Cycle (Q days) 28 Sexually Active? Y Age of first menstrual cycle 15 Date of Last Pap Smear 11/11/2020 Sexual Problems? N LMP Approximate N Obstetrics History GPAL:G 2 P 1 0 1 1 Type Value Full Term 1 Spontaneous 1 Living 1 Total 2 Past Encounters Encounter ID Performer Location Encounter Start Date Encounter Closed Date Diagnosis/Indication Diagnosis SNOMED-CT Code Diagnosis ICD10 Code Diagnosis Note [id number] Adrienne Monreal MD [facility] [address] [address] 10/07/2020 15:50:57 10/08/2020 12:07:36 Missed miscarriage 67855243 O02.1 Complete miscarriage 156 206504 O03.9 [id number] MD Luz Zambrano [address] [address] 11/04/2020 14:39:08 11/04/2020 15:30:44 Gynecologic examination 23814156 Z01.419 [id number] Kirill Miguel MD [facility] [address],[place] [address] 12/19/2020 15:49:20 12/19/2020 16:18:37 Threatened miscarriage 95069379 O20.0 Z3A.01 [id number] Kirill Miguel MD [facility] [address],[place] [address] 12/31/2020 11:24:31 01/05/2021 19:02:20 [id number] Anu Romano [facility] [address],[place] [address] 12/31/2020 11:25:08 12/31/2020 22:14:09 Amenorrhea 42677811 N91.2 [id number] Kirill Miguel MD [facility] [address],[place] [address] 01/09/2021 14:50:33 01/09/2021 15:37:49 Threatened miscarriage 42112034 O20.0 Z3A.01 Z3A.10 [id number] Adrienne Monreal MD [facility] [address],[place] [address] 01/28/2021 16:19:35 01/28/2021 17:36:20 screening 630890936 Z36.82 [id number] Adrienne Monreal MD [facility] [address],[place] [address] 01/28/2021 16:20:25 01/30/2021 14:24:58 Routine care 455602501 Z34.91 Elderly primigravida 293 64583 O09.519 [id number] Adrienne Monreal MD [facility] [address],[place] [address] 02/12/2021 16:09:51 02/12/2021 16:48:57 Increased frequency of urination 618835592 R35.0 [id number] Anu Romano [facility] [address],[place] [address] 02/26/2021 10:56:08 02/26/2021 16:29:18 Routine care 693706724 Z34.92 [id number] MD Melissa Zambranoville [address],[place] [address] 03/18/2021 15:56:14 03/18/2021 17:13:52 screening for malformation 307379044 Z36.3 [id number] MD Luz Zambrano [address],[place] [address] 03/18/2021 15:56:39 03/19/2021 10:16:48 Routine care 816477685 Z34.91 [id number] MD Melissa Zambranoville [address],[place] [address] 04/15/2021 17:03:50 04/17/2021 11:06:31 Routine care 330595943 Z34.91 Elderly primigravida 293 83947 O09.519 [id number] Adrienne Monreal MD [facility] [address],[place] [address] 05/14/2021 10:10:13 05/15/2021 10:08:18 Routine care 883359995 Z34.91 Advanced m aternal age 323273308 O09.512 [id number] Adrienne Monreal MD [facility] [address],[place] [address] 05/27/2021 16:59:05 05/28/2021 10:54:54 Elderly primigravida 01846061 O09.519 Routine an tenatal care 612358039 Z34.91 [id number] MD Melissa Zambranoville [address],[place] [address] 06/10/2021 11:54:16 06/10/2021 13:07:12 Routine care 406323784 Z34.91 [id number] Kirill Miguel MD [facility] [address],[place] [address] 06/25/2021 16:37:36 06/25/2021 17:20:09 Routine care 422488834 Z34.83 [id number] MD Luz Zambrano [address],[place] [address] 07/09/2021 16:27:26 07/09/2021 17:25:45 Elderly primigravida 51567427 O09.519 Routine an tenatal care 674187245 Z34.91 [id number] Zeinab Dawkins [facility] [address],[place] [address] 07/17/2021 16:18:19 07/17/2021 17:42:17 Routine care 233930286 Z34.93 [id number] Zeinab Dawkins [facility] [address],[place] [address] 07/24/2021 16:26:51 07/25/2021 14:06:36 Routine care 198478077 Z34.93 [id number] Anu Romano [facility] [address],[place] [address] 07/30/2021 16:58:40 2021 09:20:35 Routine care 560236061 Z34.92 [id number] Adrienne Monreal MD [facility] [address],[place] [address] 08/08/2021 09:54:31 08/08/2021 12:10:25 Elderly primigravida 45752633 O09.519 Routine an tenatal care 029359591 Z34.91 [id number] Adrienne Monreal MD [facility] [address],[place] [address] 09/09/2021 11:56:39 09/09/2021 12:29:14 state 72841179 Z39.2 [id number] Adrienne Monreal MD [facility] [address],[place] [address] 11/28/2021 11:29:03 12/01/2021 14:33:03 Gynecologic examination 71193764 Z01.419 Health Concerns Section Related Observation LastModified by Organization Detai ls LastModified Time None Recorded Concern Status LastModified by Organization Details LastModified Time None Recorded Advance Directives Directive N: Payers Insurance Date Sequence Insurance Name Policy Number Policy Lainez Covered Member ID Lainez Member ID Guarantor Name 11/27/2021 1 [facility] [id number] Catherine Godinez [id number] Catherine Godinez 11/28/2021 1 [facility] (O) [id number] Mike Godinez [id number] Catherine Godinez Notes Date Note Type Note Provider Name and Address Organization Details Recorded Time 09/09/2021 text/html Patient is a 36yo presenting for a 4 week visit. She had a on 08/10 at 40.3 weeks GA. BabMadeline was 7-9, breast feeding, doing well. Doing well overall. Normal lochia. Pain- a little tender at perineum still. Bowel and bladder function normal. Verden score 6 Period-no Annual due:Nov Concerns: none Adrienne Monreal MD [address], [place], [address], [facility] 09/09/2021 12:28:24 11/28/2021 text/html Patient is a 36y o who presents for an annual exam. Tami 3.5mo, doing well. . no sex currently. do want to TTC again relatively soon due to their ages. Perineum feels much better. last pap-11/2020 NILM sexually active-n contraception-abs tinence seatbelts-y exercise-y depression-denies domestic violence-denies tobacco-n concerns- Adrienne Monreal MD [address], [place], [address], [facility] 12/01/2021 12:33:23 OBGyn Episode Ob Episode Information Episode Created Date Number of Fetuses Patient Bloodtype Patient rh Status Prepregnancy Weight lbs Domestic Partner Domestic Partner Phone Father Name Trade Clerk Status 11/04/19 21 1 CLOSED Fetus Data First Name Last Name Admitted to NICU Weight (g) Sex Living Outcome Pediatric Complications Fetus ID Race Codes Race Delivery Type , Spontane ous 1113 Bob Calculation Initial Bob Date Initial Exam Date Initial Exam Provider Initial Ultrasound Date Last Menstrual Period Date Ultra Sound Weeks Gestation 0 Eighteen To Twenty Week Bob Update Ultra Sound Date Fundal Height At Umbil Quickening Date Ultra Sound Latest Weeks Gestation Final Bob Confirmed By Final Bob Confirmed Date Final Bob Date Ultra Sound Latest Days Gestation 0 0 Menstrual History Last Menstrual Date Menses Monthly On Bcp Conception Prior Menses Frequency Hcg Plus Date Menarche Onset Age Delivery Information Delivery Date Delivery Type Labor Anesthesia Weeks Gestation Incision Type Labor Labor Length Hrs Delivered By Post Complications Tubal Sterilization Discharge Date Comments 0 Discharge Information Feeding Method Contraceptive Method Maternal HG B and HCT Levels Ob Episode Information Episode Created Date Number of Fetuses Patient Bloodtype Patient rh Status Prepregnancy Weight lbs Domestic Partner Domestic Partner Phone Father Name Trade Clerk Status 01/29/20 21 1 O Positive 144 CLOSED Fetus Data First Name Last Name Admitted to NICU Weight (g) Sex Living Outcome Pediatric Complications Fetus ID Race Codes Race Delivery Type 3430.28 95 F true Full Term [id number] Vaginal Delivery Problems Problem Notes Monreal pt!! Problem Name Start Date End Date Resolution Snomed Code Not e Advanced maternal age [id number] NL NIPT Bob Calculation Initial Bob Date Initial Exam Date Initial Exam Provider Initial Ultrasound Date Last Menstrual Period Date Ultra Sound Weeks Gestation 08/07/2021 01/28/2021 12/19/2020 10/31/2020 7 Eighteen To Twenty Week Bob Update Ultra Sound Date Fundal Height At Umbil Quickening Date Ultra Sound Latest Weeks Gestation Final Bob Confirmed By Final Bob Confirmed Date Final Bob Date Ultra Sound Latest Days Gestation 0 [email or web address] 01/28/2021 08/07/20 21 0 Pre- Flowsheet Flowsheet Date 12/31/2020 Mitchell Score Blood Edema Fundus Height Fundus Units Glucose Ketones Leukocytes Nitrite Labor Signs Protein Cervic Dilation Cervic Effacement Cervic Station Type Weight in lbs Pre/Post Dialysis Refused BP Diastolic BP Location Tested BP Systolic BP Type Fetus Heart Rate Present Fetus Movement Comments Flowsheet Date 01/28/2021 Mitchell Score Blood Edema Fundus Height Fundus Units Glucose Ketones Leukocytes Nitrite Labor Signs Protein Cervic Dilation Cervic Effacement Cervic Station neg none trace Type Weight in lbs Pre/Post Dialysis Refused Weight 147.442447990109 BP Diastolic BP Location Tested BP Systolic BP Type 80 120 Fetus Heart Rate Present A 165 Fetus Movement A No Comments Catherine is a 35yo wel l known to me from [facility] in Sep who presents for care. Is AMA by one week, discussed, is doing NIPT today along with labs. Had some spotting early in , resolved, CARLOTA seen earlier resolved today. US today also with normal NT and NB present. Starting to feel better. Education done, questions answered. Flowsheet Date 02/12/2021 Mitchell Score Blood Edema Fundus Height Fundus Units Glucose Ketones Leukocytes Nitrite Labor Signs Protein Cervic Dilation Cervic Effacement Cervic Station Type Weight in lbs Pre/Post Dialysis Refused Weight 148.096869159324 BP Diastolic BP Location Tested BP Systolic BP Type 79 134 Fetus Heart Rate Present A 140 Fetus Movement A No Comments Here for concern of UTI. UA neg. Having pelvic pressure/dull pain and more frequent urination. No dysuria. No fever/chills. LIkely discomforts, reassured. FU as scheduled. Flowsheet Date 02/26/2021 Mitchell Score Blood Edema Fundus Height Fundus Units Glucose Ketones Leukocytes Nitrite Labor Signs Protein Cervic Dilation Cervic Effacement Cervic Station neg none trace Type Weight in lbs Pre/Post Dialysis Refused Weight 150.848604161534 BP Diastolic BP Location Tested BP Systolic BP Type 84 121 Fetus Heart Rate Present A 158 Fetus Movement A No Comments patient states that having p ain and nausea, reviewed precautions, doing well, f/u anatomy scan in 4 weeks Flowsheet Date 03/18/2021 Mitchell Score Blood Edema Fundus Height Fundus Units Glucose Ketones Leukocytes Nitrite Labor Signs Protein Cervic Dilation Cervic Effacement Cervic Station Type Weight in lbs Pre/Post Dialysis Refused BP Diastolic BP Location Tested BP Systolic BP Type Fetus Heart Rate Present Fetus Movement Comments Flowsheet Date 03/18/2021 Mitchell Score Blood Edema Fundus Height Fundus Units Glucose Ketones Leukocytes Nitrite Labor Signs Protein Cervic Dilation Cervic Effacement Cervic Station neg none trace Type Weight in lbs Pre/Post Dialysis Refused Weight 154.422982527798 BP Diastolic BP Location Tested BP Systolic BP Type 69 107 Fetus Heart Rate Present A 135 Fetus Movement A No Comments Doing very well. Vacation to [place] later this week. Precautions given. US today anatomy complete, except profile not seen, but Profile and nasal bone seen previous US. Questions answered. Flowsheet Date 04/15/2021 Mitchell Score Blood Edema Fundus Height Fundus Units Glucose Ketones Leukocytes Nitrite Labor Signs Protein Cervic Dilation Cervic Effacement Cervic Station none 23 trace Type Weight in lbs Pre/Post Dialysis Refused Weight 158.987056908908 BP Diastolic BP Location Tested BP Systolic BP Type 76 123 Fetus Heart Rate Present A 150 Fetus Movement A Yes Comments 2+glucose- GCT next visit. N o concerns. Good FM. Discuss Tdap next visit. Flowsheet Date 05/14/2021 Mitchell Score Blood Edema Fundus Height Fundus Units Glucose Ketones Leukocytes Nitrite Labor Signs Protein Cervic Dilation Cervic Effacement Cervic Station neg trace 25 trace Type Weight in lbs Pre/Post Dialysis Refused Weight 160.713126690314 BP Diastolic BP Location Tested BP Systolic BP Type 70 118 Fetus Heart Rate Present A 145 Fetus Movement A Yes Comments Doing very well. RH pos. GCT today. Discussed and encouraged Tdap. Flowsheet Date 05/27/2021 Mitchell Score Blood Edema Fundus Height Fundus Units Glucose Ketones Leukocytes Nitrite Labor Signs Protein Cervic Dilation Cervic Effacement Cervic Station neg none 29 trace Type Weight in lbs Pre/Post Dialysis Refused Weight 162.762992934704 BP Diastolic BP Location Tested BP Systolic BP Type 74 112 Fetus Heart Rate Present A 145 Fetus Movement A Yes Comments Doing well. GCT wnl. Will do Tdap. COVID vaccine done. Precautions and plan discussed. Flowsheet Date 06/10/2021 Mitchell Score Blood Edema Fundus Height Fundus Units Glucose Ketones Leukocytes Nitrite Labor Signs Protein Cervic Dilation Cervic Effacement Cervic Station neg none 29 trace Type Weight in lbs Pre/Post Dialysis Refused Weight 164.95118003850 BP Diastolic BP Location Tested BP Systolic BP Type 77 116 Fetus Heart Rate Present A 145 Fetus Movement A Yes Comments Doing great. S<D a little, U S if continues. Tdap done. Flowsheet Date 06/25/2021 Mitchell Score Blood Edema Fundus Height Fundus Units Glucose Ketones Leukocytes Nitrite Labor Signs Protein Cervic Dilation Cervic Effacement Cervic Station 33 trace Type Weight in lbs Pre/Post Dialysis Refused Weight 167.718497211478 BP Diastolic BP Location Tested BP Systolic BP Type 78 R arm 130 sitting Fetus Heart Rate Present A 127 Fetus Movement A Yes Comments Discussed flu vaccine, no co mplaints. Routine care. Flowsheet Date 07/09/2021 Mitchell Score Blood Edema Fundus Height Fundus Units Glucose Ketones Leukocytes Nitrite Labor Signs Protein Cervic Dilation Cervic Effacement Cervic Station neg trace 35 trace 1cm 40% Type Weight in lbs Pre/Post Dialysis Refused Weight 169.732183360204 BP Diastolic BP Location Tested BP Systolic BP Type 82 147 80 132 Fetus Heart Rate Present A 140 Fetus Movement A Yes Comments Doing well, ran a 5K last we ekend, very uncomfortable. GBS done and discussed. Cervix very posterior. Precautions given. FU weekly. Flowsheet Date 07/17/2021 Mitchell Score Blood Edema Fundus Height Fundus Units Glucose Ketones Leukocytes Nitrite Labor Signs Protein Cervic Dilation Cervic Effacement Cervic Station none 37 trace Type Weight in lbs Pre/Post Dialysis Refused Weight 167.292359522040 BP Diastolic BP Location Tested BP Systolic BP Type 86 131 Fetus Heart Rate Present A 130 Fetus Movement A Yes Comments Doing well. Had covid, tdap, and flu vaccines. Pre admit done. No regular contractions. Labor precautions .Pt works in [employer] and is going to ask about working from home the last few weeks of . We can give a note requesting that if possible. Flowsheet Date 07/24/2021 Mitchell Score Blood Edema Fundus Height Fundus Units Glucose Ketones Leukocytes Nitrite Labor Signs Protein Cervic Dilation Cervic Effacement Cervic Station none 37 trace Type Weight in lbs Pre/Post Dialysis Refused Weight 171.125320396000 BP Diastolic BP Location Tested BP Systolic BP Type 80 130 Fetus Heart Rate Present A 139 Fetus Movement A Yes Comments Doing well. No contractions. Labor precautions. Decided on [facility]. Flowsheet Date 07/30/2021 Mitchell Score Blood Edema Fundus Height Fundus Units Glucose Ketones Leukocytes Nitrite Labor Signs Protein Cervic Dilation Cervic Effacement Cervic Station neg trace trace Type Weight in lbs Pre/Post Dialysis Refused Weight 168.084522262000 BP Diastolic BP Location Tested BP Systolic BP Type 79 118 Fetus Heart Rate Present Fetus Movement A Yes Comments patient states that having s ome issues issues, pain, discharge, swelling and nausea. doing well declines cervical check and IOL, precautions reviewed f/u one week Flowsheet Date 08/08/2021 Mitchell Score Blood Edema Fundus Height Fundus Units Glucose Ketones Leukocytes Nitrite Labor Signs Protein Cervic Dilation Cervic Effacement Cervic Station neg trace 40 trace 3cm 80% -3 Type Weight in lbs Pre/Post Dialysis Refused Weight 171.855324868232 BP Diastolic BP Location Tested BP Systolic BP Type 85 135 Fetus Heart Rate Present Fetus Movement A Yes Comments Doing well. Irregular contra ctions. Cervix faborable except posterior. IOL Wednesday night. Discussed induction, precautions given. Menstrual History Last Menstrual Date Menses Monthly On Bcp Conception Prior Menses Frequency Hcg Plus Date Menarche Onset Age 0110/31/2020 Genetic Screening And Infection History Question Response Note Mental Retardation/Autism false Patient's Age Will Be 35 Years Or Older At Estim ated Date of Delivery true Thalassemia (Setswana, Mexican, Mediterranean, Or Background): MCV < 80 false Neural Tube Defect (Meningomyelocele, Spina Bifi da, Or Anencephaly) false Congenital Heart Defect false Down Syndrome false Michael-Sachs (eg, Alevism, Cajun, Croatian-[place]) f alse Ana Disease false Sickle Cell Disease Or Trait () false Hemophilia Or Other Blood Disorders false Muscular Dystrophy false Cystic Fibrosis false Dickson's Chorea false Intellectual Disability/Autism false If Yes, Was Person Tested For Fragile X? false Other Inherited Genetic Or Chromosomal Disorder false Maternal Metabolic Disorder (eg, Type 1 Diabetes , PKU) false Patient Or Baby's Father Had A Child With Defects Not Listed Above false Recurrent Loss, Or A Stillbirth false Medications (including Suppl ements, Vitamins, Herbs, OTC Drugs), Illicit/Recreational Drugs, Alcohol false If Yes, Agent(s) And Strength/Dosage false Any Other Genetic History false Live With Someone With TB Or Exposed To TB false Patient Or Partner Has History Of Genital Herpes false Rash Or Viral Illness Since Last Menstrual Perio d false History Of STD, Gonorrhea, Chlamydia, HPV, Syphi lis false Other Infection History false History of HIV false History of Hepatitis false Prior GBS-infected child false Hemoglobinopathy Or Carrier false Other Structural Defect false Recent Travel History Outside of Country false Delivery Information Delivery Date Delivery Type Labor Anesthesia Weeks Gestation Incision Type Labor Labor Length Hrs Delivered By Post Complications Tubal Sterilization Discharge Date Comments 1 Induce d Regional-Ep idural 40.3 false Anu Romano CNM AMA SROM EBL 510 Discharge Information Feeding Method Contraceptive Method Maternal HG B and HCT Levels Breast
--- OUTSIDE RECORDS SUMMARY | 2025-04-16 10:12 | XMS_ITS | Clinical Summary ---
Author Organization [facility] Address [address] [place] [address] Care Team Providers Care Health Promotion Officer Name Role Phone Unknown, Provider Primary Care Provider Unavaila ble Source Comments [facility],non-owned Affiliates and Associated Physician Practices is amultiple site organization consisting of ambulatory clinics and hospital sitesin [place], [place], [place] and [place]. This disclosure is being madepursuant to the Care Everywhere program and may not contain all information available regarding this patient. Last updated 18.[facility] Allergies No known active allergies Medications * Be aware that medications may not be up to date on this document. Alwaysverify current medications with the patient. 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 Gender Identity Not on file Sexual Orientation Not on file Last Filed Vital Signs Vital Sign Reading Time Taken Comments Blood Pressure 112/78 08/19/2021 4:48 PM PETROLEUM GEOLOGY FACULTY MEMBER Pulse 100 08/19/2021 4:48 PM PETROLEUM GEOLOGY FACULTY MEMBER Temperature 37.1 C (98.8 F) 08/19/2021 4:48 PM PETROLEUM GEOLOGY FACULTY MEMBER Respiratory Rate 17 08/19/2021 4:48 PM PETROLEUM GEOLOGY FACULTY MEMBER Oxygen Saturation 97% 08/19/2021 4:48 PM PETROLEUM GEOLOGY FACULTY MEMBER Inhaled Oxygen Concentration - - Weight 70.1 kg (154 lb 9.6 oz) 08/19/2021 4:48 P M PETROLEUM GEOLOGY FACULTY MEMBER Height 163.8 cm (5' 4.5) 08/19/2021 4:48 PM PETROLEUM GEOLOGY FACULTY MEMBER Body Mass Index 26.13 08/19/2021 4:48 PM PETROLEUM GEOLOGY FACULTY MEMBER Plan of Treatment Health Maintenance Due Date Last Done Comments HIV SCREENING 2001 HEPATITIS C SCREENING 07/26/2004 DTAP/TDAP/TD VACCINES (1 - Tdap) 2005 HEPATITIS B VACCINE (1 of 3 - 19+ 3-dose series) 2005 PAP SMEAR 2007 COVID-19 VACCINE (2023-2 5 season) 2024 01/30/2021, 01/06/2021 DEPRESSION SCREENING 10/11/2024 INFLUENZA VACCINE (Season Ended) 2025 07/17/2021 ZOSTER VACCINE (1 of 2) 2036 HIB VACCINE Aged Out No longer eligi ble based on patient's age to complete this topic HPV VACCINE Aged Out No longer eligi ble based on patient's age to complete this topic MENINGOCOCCAL (Group B) VACCINE SHARED DECISION-MAKING Aged Out No longer eligible based on patient's age to complete this topic MENINGOCOCCAL GROUPS A/C/Y/W VACCINE Aged Out No longer eligible b ased on patient's age to complete this topic PNEUMOCOCCAL VACCINE Aged Out No long er eligible based on patient's age to complete this topic Insurance [employer] SELF PAY NO INSURANCE Member Subscriber Plan / Payer (Ef fective for All Dates) Name:Catherine Shah Member ID:Not on file Relation to Subscriber:Not on file Name:CATHERINE SHAH Subscriber ID:Not on file (Home) Address: [address] [place] [id number] Payer ID:Not on file Group ID:Not on file Type:Self Pay Address: [place], [place] Care Teams Health Promotion Officer Relationship Specialty Start Date End Date Unknown, Provider PCP - General 10/21/16
--- OUTSIDE RECORDS SUMMARY | 2025-04-16 10:12 | XMS_ITS | Clinical Summary ---
Author Organization [facility] Address [facility] [address] [place] [address] Care Team Providers Care Registry Nurse Name Role Phone Candy Lobato Primary Care Provider Allergies No known active allergies Medications fluticasone propionate 50 MCG/ACT nasal spray 2 sprays by Nasal route daily. Active loratadine 10 MG tablet Take 10 mg by mouth daily as needed for Allergies. Active vitamin, low iron, ( VITAMIN WITH IRON) 27-0.8 MG tablet Take 1 tablet by mouth daily. Active Active Problems Problem Noted Date Diagnosed Date Seasonal allergies 09/12/2020 BMI 22.0-22.9, adult 09/12/2020 Immunizations Immunization Administration Dates Next Due Fluzone 6 Months+ Quad (0.5 mL Prefilled Syringe ) 07/17/2021 Tdap (Adacel) 06/02/2021 Family History Medical History Relation Comments No Known Problems Brother 1 heart murmur Brother 2 No Known Problems Brother 3 Allergies Brother 4 Aneurysm Father cerebral pacemaker Father SSS Obesity Maternal Aunt No Known Problems Maternal Grandfather Heart Disease Maternal Grandmother brain tumor Maternal Grandmother ALS Maternal Uncle Kidney Cancer Mother No Known Problems Paternal Grandfather Dementia Paternal Grandmother No Known Problems Paternal Uncle Anxiety Sister Hypertension Sister Relation Status Comments Brother 1 Alive Brother 2 Alive Brother 3 Alive Brother 4 Alive Father Alive Maternal Aunt Alive Maternal Grandfather Maternal Grandmother Maternal Uncle Alive Mother Paternal Grandfather Paternal Grandmother Alive Paternal Uncle Alive Sister Alive Social History Tobacco Use Types Packs/Day Years Used Date Smoking Tobacco: Never Smokeless Tobacco: Never Alcohol Use Standard Drinks/Week Comments Yes 0 (1 standard drink = 0.6 oz pur e alcohol) 1-2 Comments No Sex and Gender Information Value Date Recorded Sex Assigned at Not on file 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 Gender Identity Not on file Sexual Orientation Not on file Last Filed Vital Signs Vital Sign Reading Time Taken Comments Blood Pressure 121/84 09/12/2020 11:39 AM ASSISTANT FAMILY TEACHER Pulse 82 09/12/2020 11:39 AM ASSISTANT FAMILY TEACHER Temperature 36.7 C (98.1 F) 09/12/2020 11:39 AM ASSISTANT FAMILY TEACHER Respiratory Rate 18 09/12/2020 11:3 9 AM ASSISTANT FAMILY TEACHER Oxygen Saturation 99% 09/12/2020 11: 39 AM ASSISTANT FAMILY TEACHER Inhaled Oxygen Concentration - - Weight 60.2 kg (132 lb 12.8 oz) 020 11:39 AM ASSISTANT FAMILY TEACHER Height 163.8 cm (5' 4.5) 09/12/2020 11 :39 AM ASSISTANT FAMILY TEACHER Body Mass Index 22.44 09/12/2020 11:39 AM ASSISTANT FAMILY TEACHER Plan of Treatment Health Maintenance Due Date Last Done Comments Cervical Cancer Screening Pa p Smear (Age 30 to 64) Every 3 Years 1986 Annual Physical 1989 Hepatitis C 2004 Hepatitis B Vaccines (1 of 3 - 19+ 3-dose series) 2005 Cervical Cancer Screening Pa p with HPV Testing (Age 30 to 64) Every 5 Years 2016 Cervical Cancer Screening with HPV 2016 COVID-19 Vaccine (2023-2 5 season) 2024 PHQ-2 (Physician [place]) 10/11/2024 DTaP, Tdap and Td Vaccines ( 2 - Td or Tdap) 06/02/2031 06/02/2021 HPV Vaccines Aged Out No longer eligi ble based on patient's age to complete this topic Meningococcal B Vaccine Aged Out No l onger eligible based on patient's age to complete this topic Meningococcal Vaccine Aged Out No mahsa maurizio eligible based on patient's age to complete this topic Pneumococcal Vaccine: Pediat rics (0 to 5 Years) and At-Risk Patients (6 to 49 Years) Aged Out No longer eligi ble based on patient's age to complete this topic RSV Immunizations Under 20 Months Aged Out No longer eligible based on patient's age to complete this topic Insurance R Care Teams Registry Nurse Relationship Specialty Start Date End Date Candy Lobato APNP [address] [place] [id number] PCP - General NURSE PRACTITIONER 09/12/20
[2025-04-16 11:22] LABS: Beta HCG Quantitative 386.12 mIU/ML
[2025-04-17 08:42] LABS: Progesterone. 17.5 ng/mL
== END 2025-04-16 10:02 | disposition home or self-care (01) ==
LOC: ANHLAB 10:03
PROVIDERS: PCP Internal Medicine; Visit Provider Obstetrics & Gynecology
DX: O09.299 Supervision of pregnancy with other poor reproductive or obstetric history, unspecified trimester (principal); Z3A.00 Weeks of gestation of pregnancy not specified
CPT/HCPCS: 36415; 84144; 84702

== ENCOUNTER 2025-04-18 10:19 | Outpatient (CLI) | payer OTHER, SELFPAY ==
--- OUTSIDE RECORDS SUMMARY | 2025-04-18 10:29 | XMS_ITS | Data Portability ---
Author Organization [facility] Address [address] [place] [address] Assessment Encounter Date Assessment Date Assessment LastModified by Organization Details LastModified Time 07/30/2021 07/30/2021 Patient is _38__weeks . Discussed plan. Not available 07/30/2021 17:18:17 09/09/2021 09/09/2021 Normal exam- pelvic rest 4 more weeks due to healing perineum May resume normal activities contraceptive plan-- declines FU for WWE Feb [email or web address] Not available 09/09/2021 12:28:04 11/28/2021 11/28/2021 healthy female exam patient declines std testing pap due 2023 mammogram at 41 contraception - discussed options while , will call if desires. FU 1 year or prn [email or web address] Not available 12/01/2021 12:33:07 Plan of Treatment [...] Resul ting Lab: [facility] [address] [facility] [address] Tel: CULTU RE ----- ----- ----- --- No Group B strep isola jennifer at 2 days (bri ctive broth enhan cemen t) Not Available [facility] (Lab) [address], [place], [address], 07/12/2021 15:25:37 Result Notes None recorded. Problems Name Problem SNOMED Code Status Onset Date Resolution Date Notes Provider Name and Address Organization Details Recorded Time 30910866 Completed 202008/28/2021 Ghazala parks, [facility] 10:15:36 Advanced maternal age 454218477 Completed NL NIPT Ghazala trimble [facility], [facility] 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 17:52:24 Problem Notes None recorded. Procedures Surgical History Date Name Laterality Status Provider Name and Address Organization Details Recorded Time 1 Date of Last Pap Smear completed Rachel Leon [facility] 12/31/2020 12:34:24 3 extraction of wisdom tooth completed Cinthya Vargas [facility] 10/07/2020 16:01:47 Imaging Results None recorded. [...] Relief 50 mcg/actuati on nasal spray,suspe nsion [place] 1 spray every day by intranasa l [...] Updated DateTime 11/28/2021 162.56 cm 25.9 kg/m2 47907.45 g 118/76 mm[Hg] [facility] 11/28/2021 11:35:41 Date Recorded Body height Body mass index (BMI) Body weight Systolic And Diastolic Provider Name and Address Organization Details Last Updated DateTime 07/24/2021 162.56 cm 29.4 kg/m2 54575.295 27 g 130/80 mm[Hg] Shraddha Garcia [facility] 07/24/2021 16:32:55 Date Recorded Body height Body mass index (BMI) Body weight Systolic And Diastolic Provider Name and Address Organization Details Last Updated DateTime 07/30/2021 162.56 cm 28.8 kg/m2 54475.518 16 g 118/79 mm[Hg] Rachel Leon [facility] 07/30/2021 17:04:23 Date Recorded Body height Body mass index (BMI) Body weight Systolic And Diastolic Provider Name and Address Organization Details Last Updated DateTime 08/08/2021 162.56 cm 29.4 kg/m2 16297.295 27 g 135/85 mm[Hg] [facility] 08/08/2021 10:01:54 Date Recorded Body height Body mass index (BMI) Body weight Systolic And Diastolic Systolic And Diastolic Provider Name and Address Organization Details Last Updated DateTime 09/09/2021 162.56 cm 26.8 kg/m2 70229.41 g 149/92 mm[Hg] 132/90 mm[Hg] Cinthya Vargas [facility] 12:00:50 Social History Question Answer Notes LastModified by Organizat ion Details LastModified Time Tobacco Smoking Status Never Smoker Fabio Lupe parks, [facility] 09/09/2021 11:57:08 Do You Have An Advance Directive? No [email or web address] Information n ot available 02/26/2021 If You Are , What Was Your Level Of Alcohol Consumption Prior To ? Occasional [email or web address] Information not available 09/09/2021 How Many Years Have You Consumed Alcohol? 13 Information not available 11/04/2020 Are You Blind Or Do You Have Difficulty Seeing? No [email or web address] Information n ot available 12/31/2020 What Is Your Level Of Caffeine Consumption? None [email or web address] Information not available 07/24/2021 How Much Tobacco Do You Chew? None [email or web address] Information not available 02/26/2021 In The 14 Days Before Symptom Onset, Have You Had Close Contact With A Laboratory-confirm ed COVID-19 While That Case Was Ill? Yes [email or web address] Information n ot available 02/26/2021 In The 14 Days Before Symptom Onset, Have You Had Close Contact With A Person Who Is Under Investigation For COVID-19 While That Person Was Ill? No [email or web address] Information not available 12/31/2020 Have You Been To An Area Known To Be High Risk For COVID-19? No [email or web address] Information not available 12/31/2020 Are You Deaf Or Do You Have Serious Difficulty Hearing? No [email or web address] Information not available 12/31/2020 What Type Of Diet Are You Following? REGULAR [email or web address] Information n ot available 02/26/2021 What Is The Highest Grade Or Level Of School You Have Completed Or The Highest Degree You Have Received? [id number] [email or web address] Information not available 02/26/2021 Are There Any Guns Present In Your Home? No [email or web address] Information not available 02/26/2021 Have You Ever Been Counseled For Unhealthy Alcohol Use? No Information not available 09/09/2021 Do You Use Protection During Sex? No [email or web address] Information not available 02/26/2021 Do You Use Your Seat Belt Or Car Seat Routinely? Yes [email or web address] Information not available 12/31/2020 Do You Have Smoke And Carbon Monoxide Detectors In Your Home? Yes [email or web address] Information not available 12/31/2020 How Much Tobacco Do You Smoke? No [email or web address] Information not available 02/26/2021 Do You Use Sunscreen Routinely? Yes Information not available 12/31/2020 Has Tobacco Cessation Counseling Been Provided? No [email or web address] Information not available 09/09/2021 Have You Used IV Drugs? No [email or web address] Information not available 02/26/2021 How Many Days In The Past Year Have You Consumed 4 Or More Drinks? 10 [email or web address] Information not available 09/09/2021 Sex: Unknown Functional Status Question Answer Note LastModified by Organizat ion Details LastModified Time Do you use any illicit or recreational drugs? No Information not available 11/04/2020 Do you or have you ever used any other forms of tobacco or nicotine? No [email or web address] Information not available 09/09/2021 What is your level of alcohol consumption? Occasional Information not available 11/04/2020 Are you able to walk? 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 Moderate Information not available 11/04/2020 Mental Status Question Answer Note LastModified by Organization D etails LastModified Time Do you feel stressed (tense, restless, nervous, or anxious, or unable to sleep at night)? [id number] [email or web address] Information not available 07/24/2021 Family History Relationship Description Onset Age of this Age Resolved Age Notes LastModified by Organization Details LastModified Time Father Hypertensive disorder [email or web address] Not available 12/31 12:33:35 Sister Hypertensive disorder [email or web address] Not available 12/31 12:33:35 Mother Carcinoma in situ of kidney 46 [email or web address] Not available 2021 11:29:14 Unspecified Relation Malignant tumor of breast matern al cousin [email or web address] Not available 02/12/2021 16:10:14 Medical History Condition [...] SNOMED-CT Code Diagnosis ICD10 Code Diagnosis Note [id number] Adrienne Monreal MD [facility] [address] [address] 10/07/2020 15:50:57 10/08/2020 12:07:36 Missed miscarriage 19321327 O02.1 Complete miscarriage 156 951820 O03.9 [id number] MD Luz Zambrano [address] [address] 11/04/2020 14:39:08 11/04/2020 15:30:44 Gynecologic examination 70128095 Z01.419 61083 Kirill Miguel MD [facility] [address],[place] [address] 12/19/2020 15:49:20 12/19/2020 16:18:37 Threatened miscarriage 14058868 O20.0 Z3A.01 [id number] Kirill Miguel MD [facility] [address],[place] [address] 12/31/2020 11:24:31 01/05/2021 19:02:20 [id number] Anu Romano [facility] [address] [address] 12/31/2020 11:25:08 12/31/2020 22:14:09 Amenorrhea 70873933 N91.2 38421 Kirill Miguel MD [facility] [address],[place] [address] 01/09/2021 14:50:33 01/09/2021 15:37:49 Threatened miscarriage 08601579 O20.0 Z3A.01 Z3A.10 40749 Adrienne Monreal MD [facility] [address] [address] 01/28/2021 16:19:35 01/28/2021 17:36:20 screening 511034672 Z36.82 [id number] Adrienne Monreal MD [facility] [address],[place] [address] 01/28/2021 16:20:25 01/30/2021 14:24:58 Routine care 946203936 Z34.91 Elderly primigravida 293 75751 O09.519 [id number] Adrienne Monreal MD [facility] [address] [address] 02/12/2021 16:09:51 02/12/2021 16:48:57 Increased frequency of urination 649919246 R35.0 [id number] Anu Romano [facility] [address],[place] [address] 02/26/2021 10:56:08 02/26/2021 16:29:18 Routine care 020844146 Z34.92 [id number] MD Melissa [facility] [address] [address] 03/18/2021 15:56:14 03/18/2021 17:13:52 screening for malformation 872234570 Z36.3 [id number] MD Luz Zambrano [address],[place] [address] 03/18/2021 15:56:39 03/19/2021 10:16:48 Routine care 329777294 Z34.91 [id number] MD Melissa Zambranoville [address] [address] 04/15/2021 17:03:50 04/17/2021 11:06:31 Routine care 707262647 Z34.91 Elderly primigravida 293 17624 O09.519 [id number] Adrienne Monreal MD [facility] [address],[place] [address] 05/14/2021 10:10:13 05/15/2021 10:08:18 Routine care 669451547 Z34.91 Advanced m aternal age 045938805 O09.512 [id number] Adrienne Monreal MD [facility] [address],[place] [address] 05/27/2021 16:59:05 05/28/2021 10:54:54 Elderly primigravida 85318999 O09.519 Routine an tenatal care 859535898 Z34.91 [id number] MD Melissa Zambranoville [address],[place] [address] 06/10/2021 11:54:16 06/10/2021 13:07:12 Routine care 436574919 Z34.91 [id number] Kirill Miguel MD [facility] [address],[place] [address] 06/25/2021 16:37:36 06/25/2021 17:20:09 Routine care 489667954 Z34.83 [id number] MD Luz Zambrano [address],[place] [address] 07/09/2021 16:27:26 07/09/2021 17:25:45 Elderly primigravida 35896076 O09.519 Routine an tenatal care 128882311 Z34.91 [id number] Zeinab Dawkins [facility] [address],[place] [address] 07/17/2021 16:18:19 07/17/2021 17:42:17 Routine care 028579168 Z34.93 [id number] Zeinab Dawkins [facility] [address],[place] [address] 07/24/2021 16:26:51 07/25/2021 14:06:36 Routine care 178072163 Z34.93 [id number] Anu Romano [facility] [address],[place] [address] 07/30/2021 16:58:40 2021 09:20:35 Routine care 243684601 Z34.92 [id number] Adrienne Monreal MD [facility] [address],[place] [address] 08/08/2021 09:54:31 08/08/2021 12:10:25 Elderly primigravida 75099465 O09.519 Routine an tenatal care 568799320 Z34.91 [id number] Adrienne Monreal MD [facility] [address],[place] [address] 09/09/2021 11:56:39 09/09/2021 12:29:14 state 00368871 Z39.2 [id number] Adrienne Monreal MD [facility] [address],[place] [address] 11/28/2021 11:29:03 12/01/2021 14:33:03 Gynecologic examination 71334040 Z01.419 Health Concerns Section Related Observation LastModified by Organization Detai ls LastModified Time None Recorded Concern Status LastModified by Organization Details LastModified Time None Recorded Advance Directives Directive N: Payers Insurance Date Sequence Insurance Name Policy Number Policy Lainez Covered Member ID Lainez Member ID Guarantor Name 11/27/2021 1 [facility] [id number] Catherine Godinez [id number] Catherine Godinez 11/28/2021 1 [facility] ([id number] Mike Godinez [id number] Catherine Godinez Notes Date Note Type Note Provider Name and Address Organization Details Recorded Time 09/09/2021 text/html Patient is a 36yo presenting for a 4 week visit. She had a on 08/10 at 40.3 weeks GA. BabMadeline was 7-9, breast feeding, doing well. Doing well overall. Normal lochia. Pain- a little tender at perineum still. Bowel and bladder function normal. [place] score 6 Period-no Annual due:Nov Concerns: none Adrienne Monreal MD [address], [place], [address], [facility] 09/09/2021 12:28:24 11/28/2021 text/html Patient is a 36y o who presents for an annual exam. Tami 3.5mo, doing well. . no sex currently. do want to TTC again relatively soon due to their ages. Perineum feels much better. last pap-11/2020 NILM sexually active-n contraception-abs tinence seatbelts-y exercise-y depression-denies domestic violence-denies tobacco-n concerns- Adrienne Monreal MD [address], [place], [address], [facility] 12/01/2021 12:33:23 OBGyn Episode Ob Episode Information Episode Created Date Number of Fetuses Patient Bloodtype Patient rh Status Prepregnancy Weight lbs Domestic Partner Domestic Partner Phone Father Name Electronic Health Records Specialist Status 11/04/19 21 1 CLOSED Fetus Data First Name Last Name Admitted to NICU Weight (g) Sex Living Outcome Pediatric Complications Fetus ID Race Codes Race Delivery Type , Spontane ous 5156 Bob Calculation Initial Bob Date Initial Exam [...] Domestic Partner Domestic Partner Phone Father Name Electronic Health Records Specialist Status 01/29/20 21 1 O Positive 144 CLOSED Fetus Data First Name Last Name Admitted to NICU Weight (g) Sex Living Outcome Pediatric Complications Fetus ID Race Codes Race Delivery Type 3430.28 95 F true Full Term 9283 Vaginal Delivery Problems Problem Notes Monreal pt!! Problem Name Start Date End Date Resolution Snomed Code Not e Advanced maternal age [id number] NL NIPT Bob Calculation Initial Bob Date [...] Date Ultra Sound Latest Days Gestation 0 [email or web address] 01/28/2021 08/07/20 21 0 Pre- Flowsheet Flowsheet [...] Weight in lbs Pre/Post Dialysis Refused Weight 147.540887717140 BP Diastolic BP Location Tested BP Systolic BP Type 80 120 Fetus Heart Rate Present A 165 Fetus Movement A No Comments Catherine is a 35yo wel l known to me from [facility] in Sep who presents for care. Is [...] Weight in lbs Pre/Post Dialysis Refused Weight 148.027838277493 BP Diastolic BP Location Tested BP Systolic [...] Weight in lbs Pre/Post Dialysis Refused Weight 150.081739162190 BP Diastolic BP Location Tested BP Systolic [...] Weight in lbs Pre/Post Dialysis Refused Weight 154.649738056518 BP Diastolic BP Location Tested BP Systolic BP Type 69 107 Fetus Heart Rate Present A 135 Fetus Movement A No Comments Doing very well. Vacation to [place] later this week. Precautions given. US today anatomy complete, except profile not seen, but Profile and nasal bone seen previous US. Questions answered. Flowsheet Date 04/15/2021 Mitchell Score Blood Edema Fundus Height Fundus Units Glucose Ketones Leukocytes Nitrite Labor Signs Protein Cervic Dilation Cervic Effacement Cervic Station none 23 trace Type Weight in lbs Pre/Post Dialysis Refused Weight 158.733195719196 BP Diastolic BP Location Tested BP Systolic [...] Weight in lbs Pre/Post Dialysis Refused Weight 160.945340111839 BP Diastolic BP Location Tested BP Systolic [...] Weight in lbs Pre/Post Dialysis Refused Weight 162.670748324545 BP Diastolic BP Location Tested BP Systolic [...] Weight in lbs Pre/Post Dialysis Refused Weight 164.48941124941 BP Diastolic BP Location Tested BP Systolic [...] Weight in lbs Pre/Post Dialysis Refused Weight 167.771786827218 BP Diastolic BP Location Tested BP Systolic [...] Weight in lbs Pre/Post Dialysis Refused Weight 169.002775217521 BP Diastolic BP Location Tested BP Systolic [...] Weight in lbs Pre/Post Dialysis Refused Weight 167.236552988139 BP Diastolic BP Location Tested BP Systolic BP Type 86 131 Fetus Heart Rate Present A 130 Fetus Movement A Yes Comments Doing well. Had covid, tdap, and flu vaccines. Pre admit done. No regular contractions. Labor precautions .Pt works in [employer] and is going to ask about working from home the last few weeks of . We can give a note requesting that if possible. Flowsheet Date 07/24/2021 Mitchell Score Blood Edema Fundus Height Fundus Units Glucose Ketones Leukocytes Nitrite Labor Signs Protein Cervic Dilation Cervic Effacement Cervic Station none 37 trace Type Weight in lbs Pre/Post Dialysis Refused Weight 171.438189865648 BP Diastolic BP Location Tested BP Systolic [...] Weight in lbs Pre/Post Dialysis Refused Weight 168.493098458297 BP Diastolic BP Location Tested BP Systolic [...] Weight in lbs Pre/Post Dialysis Refused Weight 171.065948949412 BP Diastolic BP Location Tested BP Systolic [...] Estim ated Date of Delivery true Thalassemia (German, Polish, Mediterranean, Or Background): MCV < 80 false Neural Tube Defect (Meningomyelocele, Spina Bifi da, Or Anencephaly) false Congenital Heart Defect false Down Syndrome false Michael-Sachs (eg, Latter-Day, Cajun, Hungarian-[place]) f alse Ana Disease false Sickle Cell Disease Or Trait () false Hemophilia Or Other Blood Disorders false Muscular Dystrophy false Cystic Fibrosis false Kittson's Chorea false Intellectual Disability/Autism false If Yes, [...]
--- OUTSIDE RECORDS SUMMARY | 2025-04-18 10:29 | XMS_ITS | Clinical Summary ---
Author Organization [facility] Address [address] [place] [address] Care Team Providers Care Balloon Design Printer Name Role Phone Unknown, Provider Primary Care Provider Unavaila ble Source Comments [facility],non-owned Affiliates and Associated Physician Practices is amultiple site organization consisting of ambulatory clinics and hospital sitesin [place], [place], [place] and [place]. This disclosure is being madepursuant to the Care Everywhere program and may not contain all information available regarding this patient. Last updated 18.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 Gender Identity Not on file Sexual Orientation Not on file Last Filed Vital Signs Vital Sign Reading Time Taken Comments Blood Pressure 112/78 08/19/2021 4:48 PM CUT ROLL MACHINE OPERATOR Pulse 100 08/19/2021 4:48 PM CUT ROLL MACHINE OPERATOR Temperature 37.1 C (98.8 F) 08/19/2021 4:48 PM CUT ROLL MACHINE OPERATOR Respiratory Rate 17 08/19/2021 4:48 PM CUT ROLL MACHINE OPERATOR Oxygen Saturation 97% 08/19/2021 4:48 PM CUT ROLL MACHINE OPERATOR Inhaled Oxygen Concentration - - Weight 70.1 kg (154 lb 9.6 oz) 08/19/2021 4:48 P M CUT ROLL MACHINE OPERATOR Height 163.8 cm (5' 4.5) 08/19/2021 4:48 PM CUT ROLL MACHINE OPERATOR Body Mass Index 26.13 08/19/2021 4:48 PM CUT ROLL MACHINE OPERATOR Plan of Treatment Health Maintenance Due Date [...] SHAH Subscriber ID:Not on file (Home) Address: [address] [place] [id number] Payer ID:Not on file Group ID:Not on file Type:Self Pay Address: [place], [place] Care Teams Balloon Design Printer Relationship Specialty Start Date End Date Unknown, Provider PCP - General 10/21/16
[2025-04-18 11:07] LABS: Beta HCG Quantitative 701.34 mIU/ML
== END 2025-04-18 10:20 | disposition home or self-care (01) ==
LOC: ANHLAB 10:20
PROVIDERS: PCP Internal Medicine; Visit Provider Obstetrics & Gynecology
DX: O09.299 Supervision of pregnancy with other poor reproductive or obstetric history, unspecified trimester (principal); Z3A.00 Weeks of gestation of pregnancy not specified
CPT/HCPCS: 36415; 84702